=== PATIENT | male | born 1940 | race Caucasian/White ===

== ENCOUNTER 2018-04-14 18:59 | Inpatient (IN) | payer MEDICARE, MEDICAID, SELFPAY ==
[2018-04-14 19:02] VITALS: BP 139/64; PULSE 72; PULSE 73; RESP 18; RESP 23; TEMP 37.2; O2SAT 88; BMI 33.0
[2018-04-14 19:12] VITALS: PULSE 74; RESP 20
[2018-04-14 19:15] VITALS: O2SAT 92
[2018-04-14 19:21] VITALS: BP 151/56; PULSE 70; RESP 25; O2SAT 90
[2018-04-14 19:24] LABS: Absolute Lymphocyte Count 0.99 X10^3/ul (0.83-4.51); Absolute Neutrophil Count 4.2 X10^3/uL (2.0-7.7); Basophil# 0.03 X10^3/uL; Basophil% 0.5 % (0-1); Eosinophil# 0.19 X10^3/uL; Eosinophils% 3.2 % (0-5); Hematocrit 41.9 % (40-54); Hemoglobin 12.9 g/dl (13.0-16.5); Lymphocyte # 0.99 X10^3/ul (4.0); Lymphocyte % 16.8 % (19-41); Mean Corp Hgb Conc 30.8 g/gl (32-36); Mean Corpuscular Hgb 29.5 pg (27.0-32.0); Mean Corpuscular Volume 95.9 fL (80-94); Mean Platelet Vol. 9.7 fl (6.2-12.0); Monocyte# 0.53 X10^3/uL; Neutrophil # 4.15 X10^3/uL (2.7-7.7); Neutrophil % 70.3 % (47-70); POSITIVE COUNT NO; POSITIVE DIFFERENTIAL NO; POSITIVE MORPHOLOGY NO; Platelet Count 178 K/mm3 (150-450); RBC Distribution Width CV 14.9 % (11.6-14.6); RBC Distribution Width SD 52.3 fl (35.1-43.9); Red Blood Count 4.37 M/mm3 (4.6-6.2); White Blood Count 5.9 K/mm3 (4.4-11.0)
[2018-04-14 19:26] VITALS: O2SAT 90
--- NOTE | 2018-04-14 19:26 | ED.VISSUMM ---
- ER Visit Summary Date of Service: 04/14/18 Chief Complaint: Shortness of breath History of Present Illness: The patient is a 77 M who tells me he short of breath. This all started today. He currently lives at [facility]. He became more short of breath there. He denies any chest pain currently but states he had some a couple of days ago. He does not usually wear oxygen. He does have a history of COPD and chronic kidney disease. According to the [facility] nurse practitioner on-call he had increase of edema of his legs. He is a former smoker but does not smoke currently. Physical Examination: Vital signs are reviewed. Slight tachypnea. He is in the low 90s on 6 L nasal cannula. He is breathing from his mouth. HEENT exam unremarkable. Heart is regular rate and rhythm without murmurs. Lungs have rhonchorous breath sounds bilaterally, right greater than left. Abdomen soft nontender. Extremities reveal no significant edema. His neurologic exam is at baseline. Test Results: EKG is sinus rhythm with rate of 71. Nonspecific ST and T-wave changes. Chest x-ray reveals chronic changes. White blood cell count normal. Lactate normal. Troponin and BNP normal. Creatinine 1.58. CTA reveals a right lower lobe pneumonia. No PE Emergency Department Course and Treatment: Patient was given albuterol treatments. He was placed on a Ventimask because he is a mouth breather. His x-ray did not show anything acute and his labs were essentially nonspecific. I did a CTA which does show the pneumonia. Patient will be given vancomycin and Zosyn. He will be admitted to the ICU for close monitoring overnight. Treatment Plan: [] Disposition: Admit Impression: Acute respiratory failure, HCAP, hypoxia This note was generated with [employer] dictation software. It may contain incorrect words, spelling, and punctuation that were not noted in review of the chart prior to signing ED Disposition - Plan for ED Patient: Chief Complaint: Shortness of Breath Referrals: Declan Reed MD [STAFF PHYSICIAN] -
[2018-04-14 19:31] LABS: Prothrombin Time (Protime)PT. 13.6 SECONDS (11.7-14.9)
[2018-04-14 19:32] LABS: Partial Thromboplast Time 27.7 Seconds (24.1-36.2)
[2018-04-14 19:39] LABS: BUN 31 mg/dL (7-18); Creatinine, Serum 1.58 mg/dL (0.70-1.30); Estimated Creatinine Clearance 37.28 ml/min; Glucose 162 mg/dL (74-106)
[2018-04-14 19:40] LABS: ALB/GLOB Ratio 1.1 RATIO (0.9-2.4); AST(SGOT) 17 U/L (15-37); Alanine Aminotransfer ALT/SGPT 32 U/L (16-61); Albumin, Serum 3.5 g/dL (3.2-5.0); Alkaline Phosphatase 57 U/L (45-117); Anion Gap 7 (5-15); BUN/Creat Ratio 19.6 RATIO (10-20); Calcium,Total 8.4 mg/dL (8.5-10.1); Chloride 109 mmol/L (98-107); EST Glomerular Filtration Rate 45 mL/min (>60); Est Glom Filt Rate - Afr Amer 55 mL/min (>60); Globulin 3.2 g/dL (2.2-4.2); Potassium 4.5 mmol/L (3.5-5.1); Protein, Total 6.7 g/dL (6.4-8.2); Sodium Level 143 mmol/L (136-145)
[2018-04-14 20:07] LABS: BNP,B-Type NATRIURETIC PEPTIDE 37.5 pg/mL (0-100)
[2018-04-14 20:23] VITALS: BP 156/77; PULSE 73; RESP 18; O2SAT 91
[2018-04-14 21:12] LABS: Lactic Acid 0.9 mmol/L (0.4-2.0)
[2018-04-14] MEDS: Albuterol 2.5 MG/3 ML VIAL.NEB. INHALATION ×2 (21:12)
--- NOTE | 2018-04-14 22:50 | PCM.HP.STD ---
Problem List (1) Sepsis Status: Acute Qualifiers: Sepsis type: sepsis due to unspecified organism Qualified Code(s): A41.9 - Sepsis, unspecified organism (2) HCAP (healthcare-associated pneumonia) Status: Acute (3) Acute respiratory failure with hypoxia Status: Acute (4) Chronic obstructive pulmonary disease Status: Chronic Qualifiers: COPD type: unspecified COPD Qualified Code(s): J44.9 - Chronic obstructive pulmonary disease, unspecified (5) HTN (hypertension) Status: Chronic Qualifiers: Hypertension type: essential hypertension Qualified Code(s): I10 - Essential (primary) hypertension (6) HLD (hyperlipidemia) Status: Chronic Qualifiers: Hyperlipidemia type: pure hypercholesterolemia Qualified Code(s): E78.00 - Pure hypercholesterolemia, unspecified; E78.0 - Pure hypercholesterolemia (7) History of MS (myocardial infarction) Status: Chronic (8) Anxiety and depression Status: Chronic (9) Schizophrenia Status: Chronic Qualifiers: Schizophrenia type: unspecified Qualified Code(s): F20.9 - Schizophrenia, unspecified (10) Colon cancer Status: Chronic Qualifiers: Colon location: unspecified part of colon Qualified Code(s): C18.9 - Malignant neoplasm of colon, unspecified (11) Dysphagia Status: Chronic Qualifiers: Dysphagia type: unspecified Qualified Code(s): R13.10 - Dysphagia, unspecified History of Present Illness Date of Admission: 04/14/18 Chief Complaint: Dyspnea, cough, confusion, weakness The patient is a 77 y/o M w/ PMHx: Chronic COPD, HTN, HLD, History of MS, Anxiety and Depression/Schizophrenia, Hx Colon CA s/p resection, Chronic Dysphagia who presents from SNF to the [facility] ED on 04/14/18 with history of progressively worsening dyspnea w/ oxygenation saturation on mid-80s on RA, not normally on oxygen supplementation, mildly productive cough, confusion and weakness x 3 days. In the ED work-up included T 99, heart rate 72, BP 139/64, respiratory rate 25, 88% on 4 L nasal cannula--> 88% on 6 L nasal cannula--> 80% on a Ventimask 35%, CBC with WBC 5.9, hemoglobin 12.9, platelet 178 without market shift, unremarkable coags, BMP with chloride 109, BUN/Cr 31/1.58 without prior comparison, glucose 162, lactic acid 0.9, troponin less than 0.015, BNP 37.5, chest x-ray with no acute findings, CTPA with right lower lobe pneumonia, 20 mm left upper lobe nodule possibly related to pneumonia, no evidence of pulmonary embolism or arterial dissection. In the ED patient administered vancomycin, Zosyn, aerosol. Past Medical History Past Medical History (Chronic Problems): Chronic Problems Chronic obstructive pulmonary disease (Chronic) HTN (hypertension) (Chronic) HLD (hyperlipidemia) (Chronic) History of MS (myocardial infarction) (Chronic) Anxiety and depression (Chronic) Schizophrenia (Chronic) Colon cancer (Chronic) Dysphagia (Chronic) Allergies No Known Allergies Allergy (Verified 04/14/18 19:01) Home Medications: Ambulatory Orders Medication Instructions Recorded Albuterol Aerosols [Ventolin 2.5 mg INHALATION Q4H PRN PRN 04/14/18 Aerosols] Atorvastatin Calcium [Lipitor] 10 mg PO QHS 04/14/18 Bisacodyl [Laxative] 15 mg PO DAILY 04/14/18 Buspirone HCl 7.5 mg PO BID 04/14/18 Fenofibrate,Micronized 67 mg PO DAILY 04/14/18 [Fenofibrate] Guaifenesin [Robitussin] 10 ml PO Q4H PRN 04/14/18 [place] Carbonate 300 mg PO BID 04/14/18 Loratadine 10 mg PO DAILY 04/14/18 Lorazepam [Ativan] 0.5 mg PO BID PRN PRN 04/14/18 Mag Hydrox/Al Hydrox/Simeth 30 ml PO Q4H PRN PRN 04/14/18 [Mylanta II] Magnesium Hydroxide [Milk Of 30 ml PO FR PRN 04/14/18 Magnesia] Melatonin/Pyridoxine HCl (B6) 1 each PO QHS 04/14/18 [Melatonin 3 mg Tablet] Metoprolol Tartrate 25 mg PO BID 04/14/18 Montelukast [Singulair] 10 mg PO DAILY 04/14/18 Olanzapine [Zyprexa] 20 mg PO DAILY 04/14/18 Psyllium [Metamucil] 1 packet PO DAILY 04/14/18 Pyridoxine HCl [Vitamin B-6] 100 mg PO DAILY 04/14/18 Risperidone 1 mg PO BID 04/14/18 Sennosides/Docusate Sodium 3 each PO DAILY 04/14/18 [Senna-Docusate Sodium Tablet] Sodium Polystyrene Sulfon/Sorb 15 gm PO DAILY 04/14/18 [Sps 15 gm/60 ml Suspension] Surgical History: - - Colon resection with ostomy with reversal, tonsillectomy. Psychiatric History: Anxiety, Depression, Schizophrenia Lives: Longterm Smoking Status: Former smoker - Patient quit cigarette tobacco use approximately 8 months prior. 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 Drugs: None - *Family History Maternal History Items: - - Patient denies any marked maternal or paternal family history including diabetes, heart disease, cancer. Paternal History Items: - - Patient denies any marked maternal or paternal family history including diabetes, heart disease, cancer. Review of Systems Constitutional: Reports: Malaise, Weakness, Fatigue. Denies: Chills, Fever, Weight Change HEENT: Reports: Dysphasia. Denies: Head Aches, Sinus Congestion, Sinus Drainage Cardiovascular: Denies: Chest Pain, Palpitations Respiratory: Reports: Cough, Shortness of Breath, Shortness of breath at rest, Shortness of breath upon exertion, Sputum production Gastrointestinal: Denies: Abdominal Pain, Nausea, Vomiting Genitourinary: Denies: Dysuria Musculoskeletal: Reports: Back Pain. Denies: Joint Pain, Joint Tenderness Skin: Denies: Rash, Wounds Neurological: Reports: Confusion. Denies: Focal weakness, Numbness, Tingling Psychiatric: Reports: Anxiety, Depression. Denies: Homicidal Ideations, Suicidal Ideations Hematologic/ Lymphatic: Reports: Anemia. Denies: Easy Bruising, Easy Bleeding VTE Information - Inpt Only VTE Present on Admission: No VTE Mechan Device Prophylaxis: SCD's VTE Pharm Prophylaxis ordered?: Yes Patient Problems: Active and Suspected Problems Acute respiratory failure with hypoxia (Acute) HCAP (healthcare-associated pneumonia) (Acute) Sepsis (Acute) Subjective: Seated upright in the ED bed, increased work of breathing, accessory muscle usage ongoing, notes feeling better than initial presentation. Objective: Physical Examination: General: awake, alert, oriented to self, place, some recent events, remains cooperative, seated upright in the ED bed, still increased RR, increased work of breathing, some accessory muscle usage. Skin: normal color, turgor, no icterus, cyanosis. HEENT: AT/NC, EOMI, PERRLA, dry MM, no carotid bruits or JVD noted. Lungs: Severely diffusely diminished BS, increased work of breathing, accessory muscle usage, increased RR, occasional end expiratory wheeze but primarily severe diminished. Heart: Regular rate and rhythm; no gallop, rub audible. Abdomen: soft, obese, NTTP, ND, normal BS, no HSM. Extremities: no cyanosis, clubbing, BL LE ankle to distal selby edema. Neurological: patient awake, alert, oriented as noted; cognitive function improving, not baseline intact; pupils equally reactive to light and accomodation; cranial nerves II-XII grossly normal, moving all 4 extremities, strength severely globally decreased. Psychiatric: affect appears moderately flat, fatigued, no acute evidence of depressive or anxiety feelings. - Physical Exam Vital Signs Temp Pulse Resp BP Pulse Ox 99.0 F 73 18 156/77 H 91 04/14/18 19:02 04/14/18 20:23 04/14/18 20:23 04/14/18 20:23 04/14/18 20:23 Oxygen Flow Rate (L/min) 8 Oxygen Delivery Method Venturi Mask Weight: 217 lb 9.54 oz Body Mass Index (BMI) 33.0 Laboratory Tests Past 24 Hrs 04/14/18 04/14/18 04/14/18 19:10 19:10 19:10 WBC 5.9 RBC 4.37 L Hgb 12.9 L Hct 41.9 MCV 95.9 H MCH 29.5 MCHC 30.8 L RDW 14.9 H RDW Differential 52.3 H Plt Count 178 MPV 9.7 Immature Gran % (Auto) 0.200 Neut % (Auto) 70.3 H Lymph % (Auto) 16.8 L [place] % (Auto) 9.0 Eos % (Auto) 3.2 Baso % (Auto) 0.5 Absolute Neuts (auto) 4.2 Absolute Lymphs (auto) 0.99 Total Counted Not Reportable PT 13.6 INR 1.0 APTT 27.7 Sodium 143 Potassium 4.5 Chloride 109 H Carbon Dioxide 27.0 Anion Gap 7 BUN 31 H Creatinine 1.58 H Estim Creat Clear Calc 37.28 Est GFR (MDRD) Af Amer 55 L Est GFR (MDRD) Non-Af 45 L BUN/Creatinine Ratio 19.6 Glucose 162 H Lactic Acid Calcium 8.4 L Total Bilirubin 0.30 AST 17 ALT 32 Alkaline Phosphatase 57 Troponin I < 0.015 B-Natriuretic Peptide Total Protein 6.7 Albumin 3.5 Globulin 3.2 Albumin/Globulin Ratio 1.1 04/14/18 04/14/18 04/14/18 19:10 19:30 20:35 WBC RBC Hgb Hct MCV MCH MCHC RDW RDW Differential Plt Count MPV Immature Gran % (Auto) Neut % (Auto) Lymph % (Auto) Camp % (Auto) Eos % (Auto) Baso % (Auto) Absolute Neuts (auto) Absolute Lymphs (auto) Total Counted PT INR APTT Sodium Potassium Chloride Carbon Dioxide Anion Gap BUN Creatinine Estim Creat Clear Calc Est GFR (MDRD) Af Amer Est GFR (MDRD) Non-Af BUN/Creatinine Ratio Glucose Lactic Acid Cancelled 0.9 Calcium Total Bilirubin AST ALT Alkaline Phosphatase Troponin I B-Natriuretic Peptide 37.5 Total Protein Albumin Globulin Albumin/Globulin Ratio Assessment/Plan All Active Problems Acute respiratory failure with hypoxia (Acute) HCAP (healthcare-associated pneumonia) (Acute) Sepsis (Acute) The patient is a 77 y/o M w/ PMHx: Chronic COPD, HTN, HLD, History of MS, Anxiety and Depression/Schizophrenia, Hx Colon CA, Chronic Dysphagia who presents from SNF to the [facility] ED on 04/14/18 with history of progressively worsening dyspnea w/ oxygenation saturation on mid-80s on RA, not normally on oxygen supplementation, mildly productive cough, confusion and weakness x 3 days. (1) Acute Sepsis secondary to Acute Hypoxic Respiratory Failure secondary to HCAP Pneumonia and Acute on Chronic COPD Exacerbation: Increased work of breathing, accessory muscle usage, increased RR, tachypneic w/ hypoxia, confusion. Will admit to ICU given tenuous pulmonary status and full code, maintain on oxygen with wean as tolerated to room air, continue ATC duonebs, PRN albuterol, maintain on IV Solumedrol, maintain on IV Zosyn and Vancomycin w/ MRSA screen pending, HOB, IS parameters w/ pending sputum cultures and urine antigens as well as respiratory viral panel. Bld cx x 2 obtained in the ED. ABG pending. (2) ? MIKAELA versus CKD, Unclear Stage: Admission BUN/Cr /.58, unclear baseline, given presentation suspect acute on chronic, will continue to hydrate, repeat BMP in AM, FeNa pending. (3) History of MS, CAD: Maintain on asa, BB, statin. (4) Hypertension: Continue home regimen including metoprolol, PRN hydralazine. (5) Hyperlipidemia: Continue home statin regimen. (6) Anxiety and Depression/Schizophrenia: Continue home psychiatric regimen w/ lithium, buspar, zyprexa and risperidone. (7) Chronic Constipation: Continue aggressive bowel regimen, hold if loose stools. (8) Hx Colon CA: s/p remote colon resection, s/p ostomy w/ reversal, remission status. (9) DVT Prophylaxis: SCDs, heparin. (10) CODE status: Discussed CODE status at length including difference between FULL code, DNR-CCA and DNR-CC status. Following discussions about the differences in these status, confirmed Full Code status, confirmed w/ SNF also. Advanced Care Planning Face to Face Time: 18 minutes. Code Visit Inpatient E&M: 36495 Init Hosp L3 Procedures: 60515 Advncd Care Plan 30 Min
--- NOTE | 2018-04-14 23:55 | NURSING ---
Called ER for report. No report received, but they will call back.
[2018-04-15] VITALS (38 sets, daily range): BP systolic 113–162; BP diastolic 50–88; PULSE 55–88; RESP 12–23; TEMP 36.1–36.9; O2SAT 2–100; BMI 31.4; BMI 33.1
[2018-04-15] MEDS: Vancomycin IV 1,000 MG/200 ML BAG 200 MG IV (00:16)
[2018-04-15 01:19] LABS: Magnesium 2.3 mg/dL (1.6-2.6)
[2018-04-15 01:20] LABS: Allen Test POS; Base Excess -1 mmol/L (-2 to +2); Bicarbonate 26.1 mmol/L (22-26); Blood Gas Specimen Type ART; FI02 35; PO2 66 mmHG (75-100); SITE R Radial; SO2 89 % (95-99); Time Given 108; Total Carbon Dioxide 28 mmol/L; pCO2 59.5 mmHg (35-45); pH 7.25 (7.35-7.45)
[2018-04-15 02:45] LABS: Allen Test POS; Base Excess -2 mmol/L (-2 to +2); Bicarbonate 25.8 mmol/L (22-26); Blood Gas Specimen Type ART; EPAP 10; FI02 40; IPAP 18; PO2 75 mmHG (75-100); RR 12; SITE L Radial; SO2 92 % (95-99); Time Given 235; Total Carbon Dioxide 28 mmol/L; pH 7.24 (7.35-7.45)
[2018-04-15] MEDS: 0.9% Normal Saline 1,000 ML 125 ML IV ×3 (03:12→21:33)
--- NOTE | 2018-04-15 03:30 | PCM.RX.CS ---
Consult Pharmacy has been consulted to manage selected antiobiotic: Vancomycin Type of Consult: New start Suspected Infection: Pneumonia Labs: Sodium 143 mmol/L (136-145) 04/14/18 19:10 Potassium 4.5 mmol/L (3.5-5.1) 04/14/18 19:10 Chloride 109 mmol/L (98-107) H 04/14/18 19:10 Carbon Dioxide 27.0 mmol/L (21.0-32.0) 04/14/18 19:10 Anion Gap 7 (5-15) 04/14/18 19:10 BUN 31 mg/dL (7-18) H 04/14/18 19:10 Creatinine 1.58 mg/dL (0.70-1.30) H 04/14/18 19:10 Est GFR (MDRD) Af Amer 55 mL/min (>60) L 04/14/18 19:10 Est GFR (MDRD) Non-Af 45 mL/min (>60) L 04/14/18 19:10 BUN/Creatinine Ratio 19.6 RATIO (10-20) 04/14/18 19:10 Glucose 162 mg/dL (74-106) H 04/14/18 19:10 Microbiology: Microbiology 04/15/18 01:15 Urine, Random Legionella Antigen - Final 04/15/18 01:15 Urine, Random Streptococcus pneumoniae Antigen (M - Final Goal Trough: 15-20 mcg/mL Pharmacy Plan for Drug Dosing: Pharmacy Service will continue to monitor and adjust dosing as required. Medications Vancomycin HCl 1,500 mg/ (Sodium Chloride) 530 mls @ 250 mls/hr IV Q24H TATYANA Piperacillin Sod/Tazobactam Sod (Zosyn) 3.375 gm in 50 mls @ 12.5 mls/hr IV Q8 TATYANA Follow-Up Labs: Trough Vancomycin Labs to be done on [date and time ordered]: 04/18 @ 0030
--- NOTE | 2018-04-15 03:45 | NURSING ---
spoke with Ольга, MANAGER BUSINESS, to get report on this patient. okay to transfer down to ROOM 104
--- NOTE | 2018-04-15 03:47 | NURSING ---
Pt transported to PCU room 104 via bed on Venti Mask 35% O2 with IV infusing.
[2018-04-15 04:57] LABS: M R Staph aureus DNA By PCR Negative (Negative); Probe Check PASS; Specimen Processing Control PASS
[2018-04-15 05:11] LABS: Allen Test POS; Base Excess -3 mmol/L (-2 to +2); Bicarbonate 24.8 mmol/L (22-26); Blood Gas Specimen Type ART; EPAP 10; FI02 40; PO2 80 mmHG (75-100); RR 14; SITE L Radial; SO2 92 % (95-99); Time Given 451; Total Carbon Dioxide 27 mmol/L; pCO2 60.6 mmHg (35-45); pH 7.22 (7.35-7.45)
[2018-04-15] MEDS: Piperacil/Tazobactam 3.375 GM/50 ML ML IV ×3 (05:56→21:36)
[2018-04-15] MEDS: Ipratropium/Albuterol Sulfate 3 ML AMPUL.NEB INHALATION ×5 (07:09→22:50)
--- NOTE | 2018-04-15 08:24 | PCM.CONS.GEN ---
Reason for Consult Date of Consultation: 04/15/18 Reason for Consultation: Respiratory failure History of Present Illness: The patient is a 77-year-old male, with a history as outlined below, who presented to the emergency department on April 14 with complaints of shortness of breath. The patient does reside at [facility]. Per report, the patient is not normally on supplemental oxygen at his baseline. The patient has a smoking history of 2 packs per day for prolonged period, having quit completely 6-8 months ago. He does not recall ever having been diagnosed with COPD or asthma. He does not currently utilize any inhalers at his baseline. He does report the presence of shortness of breath and a mild, intermittently productive cough. He denies any chest tightness or wheezing. He does report that he is schizophrenic and hears voices frequently. On presentation to the emergency department, the patient was noted to be afebrile hemodynamically stable. He was hypoxic requiring 4 L/min of supplemental oxygen initially. Laboratory evaluation revealed no evidence of a leukocytosis. Chemistry profile revealed elevated creatinine of 1.58. Serum lactate was within normal limits. Liver function profile was normal. Troponin was negative and BNP was within normal limits. A CTA chest was obtained in the emergency department and revealed no evidence for pulmonary embolism, but did reveal a right lower lobe pneumonia and a 2 cm left upper lobe nodule. The patient was started on broad-spectrum antimicrobials and subsequently transferred to the progressive care unit for ongoing management. Past Medical History Past Medical History (Chronic Problems): Chronic Problems (Last Updated 04/15/18 @ 01:40 by Estella Cavazos) Chronic obstructive pulmonary disease (Chronic) HTN (hypertension) (Chronic) HLD (hyperlipidemia) (Chronic) History of IL (myocardial infarction) (Chronic) Anxiety and depression (Chronic) Schizophrenia (Chronic) Colon cancer (Chronic) Dysphagia (Chronic) Medical History: Medical History (Last Updated 04/15/18 @ 01:40 by Estella Cavazos) Anxiety F41.9 COPD (chronic obstructive pulmonary disease) J44.9 Constipation K59.00 Dysphagia R13.10 GERD (gastroesophageal reflux disease) K21.9 Hyperlipemia E78.5 Malignant neoplasm C80.1 Paranoid schizophrenia F20.0 Hypertension I10 Allergies No Known Allergies Allergy (Verified 04/14/18 19:01) Home Medications: Ambulatory Orders Medication Instructions Recorded Albuterol Aerosols [Ventolin 2.5 mg INHALATION Q4H PRN PRN 04/14/18 Aerosols] Atorvastatin Calcium [Lipitor] 10 mg PO QHS 04/14/18 Bisacodyl [Laxative] 15 mg PO QHS 04/14/18 Buspirone HCl 7.5 mg PO BID 04/14/18 Fenofibrate,Micronized 67 mg PO QHS 04/14/18 [Fenofibrate] Guaifenesin [Robitussin] 10 ml PO Q4H PRN 04/14/18 [place] Carbonate 300 mg PO BID 04/14/18 Loratadine 10 mg PO DAILY 04/14/18 Lorazepam [Ativan] 0.5 mg PO BID PRN PRN 04/14/18 Mag Hydrox/Al Hydrox/Simeth 30 ml PO Q4H PRN PRN 04/14/18 [Mylanta II] Magnesium Hydroxide [Milk Of 30 ml PO FR PRN 04/14/18 Magnesia] Melatonin/Pyridoxine HCl (B6) 1 each PO QHS 04/14/18 [Melatonin 3 mg Tablet] Metoprolol Tartrate 25 mg PO BID 04/14/18 Montelukast [Singulair] 10 mg PO DAILY 04/14/18 Olanzapine [Zyprexa] 20 mg PO QHS 04/14/18 Psyllium [Metamucil] 1 packet PO DAILY 04/14/18 Pyridoxine HCl [Vitamin B-6] 100 mg PO DAILY 04/14/18 Risperidone 1 mg PO BID 04/14/18 Sennosides/Docusate Sodium 3 each PO QHS 04/14/18 [Senna-Docusate Sodium Tablet] Sodium Polystyrene Sulfon/Sorb 15 gm PO QHS 04/14/18 [Sps 15 gm/60 ml Suspension] Surgical History: - - Colon resection with ostomy with reversal, tonsillectomy. Psychiatric History: Anxiety, Depression, Schizophrenia Lives: [facility] Smoking Status: Former smoker - Patient quit cigarette tobacco use approximately 8 months prior. 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 Drugs: None - *Family History Maternal History Items: - - Patient denies any marked maternal or paternal family history including diabetes, heart disease, cancer. Paternal History Items: - - Patient denies any marked maternal or paternal family history including diabetes, heart disease, cancer. Review of Systems Constitutional: Reports: Weakness, Fatigue Eyes: Denies: Blurred vision, Double vision HEENT: Denies: Head Aches, Sinus Congestion, Sinus Drainage Cardiovascular: Denies: Chest Pain, Palpitations Respiratory: Reports: Cough, Shortness of Breath. Denies: Wheezing Gastrointestinal: Denies: Abdominal Pain, Nausea, Vomiting Genitourinary: Denies: Dysuria Musculoskeletal: Denies: Joint Pain, Joint Tenderness Skin: Denies: Rash, Wounds Neurological: Reports: Difficulty swallowing Psychiatric: Reports: - - Baseline schizophrenia Hematologic/ Lymphatic: Denies: Easy Bruising, Easy Bleeding Patient Problems: Active and Suspected Problems (Last Updated 04/15/18 @ 01:40 by Estella Cavazos) Acute respiratory failure with hypoxia (Acute) HCAP (healthcare-associated pneumonia) (Acute) Sepsis (Acute) Objective: The patient's most recent lab work, culture data and imaging studies have all been personally reviewed. Strep and urine Legionella antigens are pending. Respiratory viral panel is pending. Blood and urine cultures are pending. - Physical Exam General: Alert, Cooperative, No apparent distress HEENT: Atraumatic, PERRLA, Normocephalic Oral: Dry Mucosa, - - Edentulous Neck: Supple, No Nodes, Trachea Midline Lungs: No rhonchi, No wheeze, No rales, Diminished Cardiovascular: Regular rate, Regular Rhythm, Normal S1, Normal S2, No murmurs, No rub noted, No Gallop Abdomen: Bowel Sounds Present, Soft, Non Tender, Obese Extremities: No clubbing, No cyanosis, Edema Skin: No breakdown Musculoskeletal: No Tenderness to Palpation of Joints or Extremities Lymphatic: No Cervical, Supraclavicular, or Inguinal Adenopathy Neurological: Neuro grossly intact Psych/Mental Status: Normal Affect, Appropriate Vital Signs Temp Pulse Resp BP Pulse Ox 98.1 F 57 L 15 136/76 H 96 04/15/18 04:00 04/15/18 07:00 04/15/18 07:00 04/15/18 07:00 04/15/18 07:00 Oxygen Delivery Method Bi-pap Weight: 211 lb 3.245 oz Body Mass Index (BMI) 31.4 Intake and Output for Last 24 Hours 09/01/18 09/02/18 09/03/18 23:59 23:59 23:59 Intake Total 781 / 781 Balance 781 / 781 Microbiology Past 72 Hours 04/15/18 01:15 Legionella Antigen - Final Urine, Random 04/15/18 01:15 Streptococcus pneumoniae Antigen (M - Final Urine, Random Laboratory Tests Past 24 Hrs 04/15/18 04/15/18 04/15/18 00:45 01:14 01:15 Specimen Type ART Sample Site R Radial pH 7.25 L Bicarbonate Actual 26.1 H POC Total CO2 28 Base Excess -1 O2 Saturation 89 L O2 % 35 ABG pCO2 59.5 H ABG pO2 66 L Mehrdad Test POS Respiration Rate O2 Delivery Device Vent Mask EPAP IPAP Blood Gas Notified Whom [facility] Blood Gas Notified Time 108 Ur Random Sodium Cancelled Urine Creatinine MRSA (PCR) Negative 04/15/18 04/15/18 04/15/18 02:30 02:43 05:08 Specimen Type ART ART Sample Site L Radial L Radial pH 7.24 L 7.22 L Bicarbonate Actual 25.8 24.8 POC Total CO2 28 27 Base Excess -2 -3 L O2 Saturation 92 L 92 L O2 % 40 40 ABG pCO2 60.0 H 60.6 H ABG pO2 75 80 [place] Test POS POS Respiration Rate 12 14 O2 Delivery Device Bi / C PAP Bi / C PAP EPAP 10 10 IPAP 18 Blood Gas Notified Whom [facility] Blood Gas Notified Time 235 451 Ur Random Sodium Urine Creatinine 33.50 MRSA (PCR) Clinical Impression(s) from Imaging Studies Chest X-Ray 04/14/18 19:12 IMPRESSION: There are no acute findings. Electronically Signed: Brando Hernandez MD at 20:24 EDT , Service support , Chest CTA 04/14/18 21:37 IMPRESSION: Fatty liver. Hepatic cysts. Right lower lobe pneumonia. 20 mm left upper lobe nodule. This may be related to a pneumonia. No demonstrated pulmonary embolism or arterial dissection. Electronically Signed: Brando Hernandez MD at 22:40 EDT , Service support , Assessment/Plan All Active Problems (Last Updated 04/15/18 @ 01:40 by Estella Cavazos) Acute respiratory failure with hypoxia (Acute) HCAP (healthcare-associated pneumonia) (Acute) Sepsis (Acute) RECOMMENDATIONS: 1. Continue antibiotics, bronchodilators and steroids as ordered. 2. BiPAP utilization, if needed. At the current time, the patient is maintaining appropriate oxygen saturations on 3 L/min. 3. Continue baseline psychiatric medications. 4. Wean supplemental oxygen to maintain saturations at or above 90%. 5. Encourage incentive spirometer use and mobilize patient as tolerated. IMPRESSIONS: 1. Acute hypoxemic and hypercarbic respiratory failure likely secondary to HCAP Suspect that the patient may have a component of underlying COPD, given his prolonged smoking history. However, he has never been formally evaluated with pulmonary function testing. In addition, imaging did reveal evidence concerning for a right lower lobe pneumonia. Agree with continuing antibiotics, pending infectious workup. Continue scheduled steroids and bronchodilators. Wean supplemental oxygen to maintain saturations above 90%. Encourage incentive spirometer use and mobilize patient as tolerated. If the patient does produce sputum, please send for culture. 2. Acute versus chronic kidney disease Unknown baseline renal function. The patient's creatinine was elevated upon arrival to the hospital. This will need to be monitored longitudinally. However, at the current time, urine output is appropriate and there is no indication for renal replacement therapy. 3. Left upper lobe lung nodule Unknown chronicity, as there is no previous chest imaging studies available for comparison. However, given the patient's extensive smoking history, this will need to be followed up upon with repeat chest imaging and potential biopsy at some point in the future. 4. History of coronary artery disease/hypertension/hyperlipidemia/depression/schizophrenia/history of colon cancer status post resection Complicates care, management, recovery and prognosis. Continue home medications as indicated. Recommend physical therapy evaluation. This note was generated with [employer] dictation software. It may contain incorrect words, spelling, and punctuation that were not noted in checking the note before signing. Code Visit Inpatient E&M: 82343 Init Hosp L3
--- NOTE | 2018-04-15 08:33 | CPS ---
PEP therapy not done, patient on BiPAP.
[2018-04-15] MEDS: Menthol/Lanolin/Calamine/Znox 113 GM Tube 1 APPLIC TOPICAL ×3 (09:04→21:34)
[2018-04-15] MEDS: busPIRone 15 MG TABLET 7.5 MG PO ×2 (09:04→21:34)
[2018-04-15] MEDS: Bisacodyl 5 MG Tablet 15 MG PO (09:05)
[2018-04-15] MEDS: Loratadine 10 MG Tablet PO (09:05)
[2018-04-15] MEDS: Lithium Carbonate 300mg Capsule 300 MG PO ×2 (09:06→21:35)
[2018-04-15] MEDS: Heparin Injection (Vial) 5,000 UNIT/ML VIAL 5000 UNIT SC ×2 (09:06→21:35)
[2018-04-15] MEDS: Psyllium 1 PACKET PO (09:07)
[2018-04-15] MEDS: RisperiDONE 1 MG Tablet PO ×2 (09:07→21:36)
[2018-04-15] MEDS: Senna/Docusate Sodium 1 Tablet 3 TABLET PO (09:07)
[2018-04-15] MEDS: Metoprolol Tartrate 25 MG Tablet PO ×2 (09:07→21:35)
[2018-04-15] MEDS: guaiFENesin 1,200 MG Tablet 1200 MG PO ×2 (09:07→21:36)
[2018-04-15] MEDS: Pyridoxine HCl 100 MG Tablet PO (09:08)
[2018-04-15] MEDS: OLANZapine 10 MG Tablet 20 MG PO (09:08)
[2018-04-15] MEDS: Fenofibrate 48 MG Tablet PO (09:08)
[2018-04-15] MEDS: Montelukast 10 MG Tablet PO (09:08)
--- NOTE | 2018-04-15 12:34 | PCM.PN.HOSP ---
Patient Problems: Active and Suspected Problems (Last Updated 04/15/18 @ 01:40 by Estella Cavazos) Acute respiratory failure with hypoxia (Acute) HCAP (healthcare-associated pneumonia) (Acute) Subjective: breathing better. Vitals/I&O's: Vital Signs Temp Pulse Resp BP Pulse Ox 36.1 C L 64 16 133/56 H 2 04/15/18 08:00 04/15/18 11:00 04/15/18 10:00 04/15/18 10:00 04/15/18 10:00 Oxygen Flow Rate (L/min) 4 Oxygen Delivery Method Nasal Cannula Weight: 95.8 kg Body Mass Index (BMI) 31.4 Intake and Output for Last 24 Hours 04/13/18 04/14/18 04/15/18 23:59 23:59 23:59 Intake Total 781 / 781 Balance 781 / 781 General: Alert, No apparent distress HEENT: Atraumatic, Normocephalic Oral: Moist Mucosa, No Gingival or Mucosal Lesions/ Ulcerations Neck: No Nodes, Thyroid Normal Size and Texture Lungs: Diminished, - - bibasilar crackles. Cardiovascular: Regular rate, Regular Rhythm, Normal S1, Normal S2, No murmurs Abdomen: Bowel Sounds Present, Soft, Non Tender, Non-Distended, Obese Extremities: No edema, No Calf Tenderness Skin: No rashes, No breakdown Musculoskeletal: No Tenderness to Palpation of Joints or Extremities, No Muscle Wasting Psych/Mental Status: Normal Affect, Appropriate Microbiology Past 72 Hours 04/15/18 01:05 Mucosa - Nose Respiratory Panel (PCR) - Final 04/15/18 01:15 Urine, Random Legionella Antigen - Final 04/15/18 01:15 Urine, Random Streptococcus pneumoniae Antigen (M - Final Laboratory Results 04/15/18 00:45: MRSA (PCR) Negative 04/15/18 01:14: Specimen Type ART, Sample Site R Radial, pH 7.25 L, Bicarbonate Actual 26.1 H, POC Total CO2 28, Base Excess -1, O2 Saturation 89 L, O2 % 35, ABG pCO2 59.5 H, ABG pO2 66 L, Mehrdad Test POS, O2 Delivery Device Vent Mask, Blood Gas Notified Whom [facility] , Blood Gas Notified Time 108 04/15/18 01:15: Ur Random Sodium Cancelled 04/15/18 02:30: Urine Creatinine 33.50 04/15/18 02:43: Specimen Type ART, Sample Site L Radial, pH 7.24 L, Bicarbonate Actual 25.8, POC Total CO2 28, Base Excess -2, O2 Saturation 92 L, O2 % 40, ABG pCO2 60.0 H, ABG pO2 75, Mehrdad Test POS, Respiration Rate 12, O2 Delivery Device Bi / C PAP, EPAP 10, IPAP 18, Blood Gas Notified Whom [facility] , Blood Gas Notified Time 235 04/15/18 05:08: Specimen Type ART, Sample Site L Radial, pH 7.22 L, Bicarbonate Actual 24.8, POC Total CO2 27, Base Excess -3 L, O2 Saturation 92 L, O2 % 40, ABG pCO2 60.6 H, ABG pO2 80, Mehrdad Test POS, Respiration Rate 14, O2 Delivery Device Bi / C PAP, EPAP 10, Blood Gas Notified Whom [facility] , Blood Gas Notified Time 451 Current Medications Acetaminophen (Tylenol) 650 mg PO Q4H PRN PRN PRN Reason: FEVER Acetaminophen (Tylenol) 650 mg PO Q6H PRN PRN PRN Reason: Mild Pain (scale 0-3)/T>100.7 Al Hydroxide/Mg Hydroxide (Mylanta Ii) 30 ml PO Q6H PRN PRN PRN Reason: Gastric burning Albuterol Sulfate (Ventolin Aerosols) 2.5 mg INHALATION Q2H PRN PRN PRN Reason: SHORTNESS OF BREATH Albuterol/Ipratropium (Duoneb) 3 ml INHALATION Q4HWA.RT [facility] Last Admin: 04/15/18 07:09 Dose: 3 ml Atorvastatin Calcium (Lipitor) 10 mg PO QHS [facility] Bisacodyl (Dulcolax) 15 mg PO DAILY [facility] Last Admin: 04/15/18 09:05 Dose: 15 mg Buspirone HCl (Buspar) 7.5 mg PO BID [facility] Last Admin: 04/15/18 09:04 Dose: 7.5 mg Calamine/Phenol (Calmoseptine Ointment) 1 applic TOPICAL 4X/DAY [facility] PRN Reason: Protocol Last Admin: 04/15/18 09:04 Dose: 1 applicatio Fenofibrate (Tricor) 48 mg PO DAILY [facility] Last Admin: 04/15/18 09:08 Dose: 48 mg Guaifenesin (Mucinex) 1,200 mg PO BID [facility] Last Admin: 04/15/18 09:07 Dose: 1,200 mg Heparin Sodium (Porcine) (Heparin Na) 5,000 unit SC Q12 [facility] Last Admin: 04/15/18 09:06 Dose: 5,000 unit Sodium Chloride () 1,000 mls @ 125 mls/hr IV .Q8H [facility] Last Admin: 04/15/18 03:12 Dose: 125 mls/hr Piperacillin Sod/Tazobactam Sod (Zosyn) 3.375 gm in 50 mls @ 12.5 mls/hr IV Q8 [facility] Last Admin: 04/15/18 05:56 Dose: 12.5 mls/hr Vancomycin HCl 1,500 mg/ (Sodium Chloride) 530 mls @ 250 mls/hr IV Q24H [facility] [place] Carbonate ([place] Carbonate) 300 mg PO BID [facility] Last Admin: 04/15/18 09:06 Dose: 300 mg Loratadine (Claritin) 10 mg PO DAILY [facility] Last Admin: 04/15/18 09:05 Dose: 10 mg Lorazepam (Ativan) 0.5 mg PO BID PRN PRN PRN Reason: ANXIETY Magnesium Hydroxide (Milk Of Magnesia) 30 ml PO DAILY PRN PRN PRN Reason: Constipation Melatonin (Melatonin) 3 mg PO QHS [facility] Methylprednisolone (Solu-Medrol) 40 mg IV Q8 [facility] Last Admin: 04/15/18 04:51 Dose: Not Given Metoprolol Tartrate (Lopressor (Beta Randell)) 25 mg PO BID [facility] Last Admin: 04/15/18 09:07 Dose: 25 mg Montelukast Sodium (Singulair) 10 mg PO DAILY [facility] Last Admin: 04/15/18 09:08 Dose: 10 mg Olanzapine (Zyprexa) 20 mg PO DAILY [facility] Last Admin: 04/15/18 09:08 Dose: 20 mg Ondansetron HCl (Zofran) 4 mg IV Q8H PRN PRN PRN Reason: NAUSEA Promethazine HCl (Phenergan) 12.5 mg IV Q6H PRN PRN PRN Reason: NAUSEA/VOMITING Psyllium Hydrophilic Mucilloid (Metamucil) 1 packet PO DAILY [facility] Last Admin: 04/15/18 09:07 Dose: 1 packet Pyridoxine HCl (Vitamin B-6) 100 mg PO DAILY [facility] Last Admin: 04/15/18 09:08 Dose: 100 mg Risperidone (Risperdal) 1 mg PO BID [facility] Last Admin: 04/15/18 09:07 Dose: 1 mg Senna/Docusate Sodium (Senokot-S, Tory-Colace) 3 tablet PO DAILY [facility] Last Admin: 04/15/18 09:07 Dose: 3 tablet Sodium Polystyrene Sulfonate (Kayexalate) 15 gm PO DAILY [facility] Medical Necessity - Tobacco Use Smoking Status: Former smoker - Patient quit cigarette tobacco use approximately 8 months prior. Tobacco Use: Non-smoker Assessment/Plan All Active Problems (Last Updated 04/15/18 @ 01:40 by Estella Cavazos) Acute respiratory failure with hypoxia (Acute) HCAP (healthcare-associated pneumonia) (Acute) Sepsis (Acute) 1. acute hypoxic and hypercapnic respiratory failure 2/2 HCAP +/- COPD wean oxygen as tolerated follow up with pulm as outpt 2. Suspected gram negative pneumonia on zosyn and vanc pulm toilet strep, legionella and resp panel negative sepsis not present 3. suspected COPD exacerbation steroids and BDs 4. CKD 3 unknown baseline monitor 5. DVT proph: SQ heparin. Code Visit Inpatient E&M: 03574 Subs Hosp L2
[2018-04-15] MEDS: Sodium Polystyrene Sulfonate 15 GM/60 ML UDC PO (16:21)
[2018-04-15] MEDS: Atorvastatin Calcium 10 MG Tablet PO (21:35)
[2018-04-15] MEDS: MELATONIN 3 MG TABLET PO (21:36)
[2018-04-16] VITALS (18 sets, daily range): BP systolic 110–137; BP diastolic 47–83; PULSE 52–79; RESP 18–26; TEMP 36.6–37.1; O2SAT 4–95
[2018-04-16 01:06] LABS: Urine Sodium 49 mmol/L (Not Establ.)
[2018-04-16] MEDS: Ipratropium/Albuterol Sulfate 3 ML AMPUL.NEB INHALATION ×5 (03:50→19:30)
[2018-04-16] MEDS: Piperacil/Tazobactam 3.375 GM/50 ML ML IV ×3 (05:24→21:28)
[2018-04-16 05:58] LABS: Anion Gap 8 (5-15); BUN 33 mg/dL (7-18); BUN/Creat Ratio 21.7 RATIO (10-20); Calcium,Total 7.9 mg/dL (8.5-10.1); Chloride 109 mmol/L (98-107); Creatinine, Serum 1.52 mg/dL (0.70-1.30); EST Glomerular Filtration Rate 47 mL/min (>60); Est Glom Filt Rate - Afr Amer 57 mL/min (>60); Estimated Creatinine Clearance 40.05 ml/min; Glucose 182 mg/dL (74-106); Potassium 4.7 mmol/L (3.5-5.1); Sodium Level 143 mmol/L (136-145)
[2018-04-16 06:02] LABS: Absolute Neutrophil Count 5.7 X10^3/uL (2.0-7.7); Hemoglobin 12.9 g/dl (13.0-16.5); Lymphocyte % 6.3 % (19-41); Mean Corp Hgb Conc 30.7 g/gl (32-36); Mean Corpuscular Hgb 29.8 pg (27.0-32.0); Monocyte# 0.25 X10^3/uL; Monocyte% 3.9 % (0-10); Neutrophil # 5.68 X10^3/uL (2.7-7.7); Platelet Count 176 K/mm3 (150-450); RBC Distribution Width CV 14.8 % (11.6-14.6); RBC Distribution Width SD 50.6 fl (35.1-43.9); Red Blood Count 4.33 M/mm3 (4.6-6.2); White Blood Count 6.4 K/mm3 (4.4-11.0)
[2018-04-16 06:05] LABS: Differential Indicated SCAN CRITERIA MET; POSITIVE COUNT NO; POSITIVE DIFFERENTIAL YES; POSITIVE MORPHOLOGY NO
[2018-04-16 06:12] LABS: Differential Comment SCANNED
[2018-04-16] MEDS: 0.9% Normal Saline 1,000 ML 125 ML IV ×2 (08:10→17:02)
[2018-04-16] MEDS: busPIRone 15 MG TABLET 7.5 MG PO ×2 (08:11→21:18)
[2018-04-16] MEDS: Menthol/Lanolin/Calamine/Znox 113 GM Tube 1 APPLIC TOPICAL ×4 (08:11→21:22)
[2018-04-16] MEDS: Bisacodyl 5 MG Tablet 15 MG PO (08:12)
[2018-04-16] MEDS: Loratadine 10 MG Tablet PO (08:12)
[2018-04-16] MEDS: Metoprolol Tartrate 25 MG Tablet PO ×2 (08:13→21:19)
[2018-04-16] MEDS: Lithium Carbonate 300mg Capsule 300 MG PO ×2 (08:13→21:19)
[2018-04-16] MEDS: Heparin Injection (Vial) 5,000 UNIT/ML VIAL 5000 UNIT SC ×2 (08:13→21:21)
[2018-04-16] MEDS: Montelukast 10 MG Tablet PO (08:14)
[2018-04-16] MEDS: Psyllium 1 PACKET PO (08:14)
[2018-04-16] MEDS: Senna/Docusate Sodium 1 Tablet 3 TABLET PO (08:14)
[2018-04-16] MEDS: RisperiDONE 1 MG Tablet PO ×2 (08:14→21:20)
[2018-04-16] MEDS: Pyridoxine HCl 100 MG Tablet PO (08:15)
[2018-04-16] MEDS: OLANZapine 10 MG Tablet 20 MG PO (08:15)
[2018-04-16] MEDS: Fenofibrate 48 MG Tablet PO (08:15)
[2018-04-16] MEDS: Sodium Polystyrene Sulfonate 15 GM/60 ML UDC PO (08:17)
--- NOTE | 2018-04-16 10:06 | PCM.PROGNOTE ---
Patient Problems: Active and Suspected Problems (Last Updated 04/15/18 @ 01:40 by Estella Cavazos) Acute respiratory failure with hypoxia (Acute) HCAP (healthcare-associated pneumonia) (Acute) Subjective: Patient did okay overnight. Patient subjectively improved compared to previous. Patient denies any current pain at this time. Patient does have a mildly productive cough of yellow sputum. Patient has remained on supplemental oxygen to maintain appropriate saturations. - Physical Exam General: Alert, Cooperative, No apparent distress, - - Speaking in full sentences. HEENT: Atraumatic, PERRLA, EOMI, Normocephalic, - - No scleral icterus or injection noted. Oral: Moist Mucosa, No Gingival or Mucosal Lesions/ Ulcerations Neck: Supple, No JVD, No Nodes, Trachea Midline Lungs: No rhonchi, No rales, Diminished, Wheezes Cardiovascular: Regular rate, Regular Rhythm, Normal S1, Normal S2, No murmurs, No rub noted, No Gallop Abdomen: Bowel Sounds Present, Soft, Non Tender, Non-Distended, Obese Extremities: No clubbing, No cyanosis, Edema - 1+ lower extremity Skin: No rashes, No breakdown, - - Some venous stasis changes noted Musculoskeletal: No Tenderness to Palpation of Joints or Extremities Lymphatic: No Cervical, Supraclavicular, or Inguinal Adenopathy Neurological: Cranial nerves II-XII grossly intact, Neuro grossly intact, Motor Exam 5/5 strength throughout Psych/Mental Status: Flat Affect, Impulsive Vital Signs Temp Pulse Resp BP Pulse Ox 36.7 C 62 20 H 130/59 H 93 04/16/18 04:00 04/16/18 08:13 04/16/18 06:45 04/16/18 04:00 04/16/18 06:45 Oxygen Flow Rate (L/min) 4 Oxygen Delivery Method Nasal Cannula Weight: 99.1 kg Body Mass Index (BMI) 31.4 Intake and Output for Last 24 Hours 04/14/18 04/15/18 04/16/18 23:59 23:59 23:59 Intake Total 1598.8 / 1598.8 5073 / 5073 Output Total 200 / 200 750 / 750 Balance 1398.8 / 1398.8 4323 / 4323 Microbiology Past 72 Hours 04/15/18 01:05 Respiratory Panel (PCR) - Final Mucosa - Nose 04/15/18 01:15 Legionella Antigen - Final Urine, Random 04/15/18 01:15 Streptococcus pneumoniae Antigen (M - Final Urine, Random Laboratory Tests Past 24 Hrs 04/15/18 04/16/18 04/16/18 02:30 05:15 05:15 WBC 6.4 RBC 4.33 L Hgb 12.9 L Hct 42.0 MCV 97.0 H MCH 29.8 MCHC 30.7 L RDW 14.8 H RDW Differential 50.6 H Plt Count 176 MPV 10.0 Immature Gran % (Auto) 0.800 Neut % (Auto) 89.0 H Lymph % (Auto) 6.3 L [place] % (Auto) 3.9 Eos % (Auto) 0.0 Baso % (Auto) 0.0 Absolute Neuts (auto) 5.7 Absolute Lymphs (auto) 0.40 L Total Counted Not Reportable Differential Comment SCANNED Sodium 143 Potassium 4.7 Chloride 109 H Carbon Dioxide 26.0 Anion Gap 8 BUN 33 H Creatinine 1.52 H Estim Creat Clear Calc 40.05 Est GFR (MDRD) Af Amer 57 L Est GFR (MDRD) Non-Af 47 L BUN/Creatinine Ratio 21.7 H Glucose 182 H Calcium 7.9 L Ur Random Sodium 49 Medical Necessity - Tobacco Use Smoking Status: Former smoker - Patient quit cigarette tobacco use approximately 8 months prior. Tobacco Use: Non-smoker Assessment/Plan All Active Problems (Last Updated 04/15/18 @ 01:40 by Estella Cavazos) Acute respiratory failure with hypoxia (Acute) HCAP (healthcare-associated pneumonia) (Acute) Sepsis (Acute) RECOMMENDATIONS: 1. Continue Zosyn, bronchodilators and steroids as ordered. Will discontinue vancomycin 2. BiPAP utilization, if needed. At the current time, the patient is maintaining appropriate oxygen saturations on 3 L/min. 3. Continue baseline psychiatric medications. 4. Wean supplemental oxygen to maintain saturations at or above 90%. 5. Encourage incentive spirometer use and mobilize patient as tolerated. 6. Outpatient evaluation for lung nodule IMPRESSIONS: 1. Acute hypoxemic and hypercarbic respiratory failure likely secondary to HCAP Suspect that the patient may have a component of underlying COPD, given his prolonged smoking history. Patient will be treated empirically as a COPD exacerbation secondary to a right lower lobe pneumonia. Patient will continue on current steroids given high supplemental oxygen requirements. Continue to use BiPAP for rescue if necessary. 2. Acute versus chronic kidney disease Unknown baseline renal function. Creatinine relatively unchanged from admission. The patient's creatinine was elevated upon arrival to the hospital. This will need to be monitored longitudinally. However, at the current time, urine output is appropriate and there is no indication for renal replacement therapy. 3. Left upper lobe lung nodule Unknown chronicity, as there is no previous chest imaging studies available for comparison. However, given the patient's extensive smoking history, this will need to be followed up upon as an outpatient with repeat chest imaging and potential biopsy at some point in the future. 4. History of coronary artery disease/hypertension/hyperlipidemia/depression/schizophrenia/history of colon cancer status post resection Complicates care, management, recovery and prognosis. Continue home medications as indicated. Recommend physical therapy evaluation. This note was generated with [employer] dictation software. It may contain incorrect words, spelling, and punctuation that were not noted in checking the note before signing. Code Visit Inpatient E&M: 94262 Subs Hosp L3
--- NOTE | 2018-04-16 10:49 | PCM.PN.HOSP ---
Patient Problems: Active and Suspected Problems (Last Updated 04/15/18 @ 01:40 by Estella Cavazos) Acute respiratory failure with hypoxia (Acute) HCAP (healthcare-associated pneumonia) (Acute) Subjective: Patient denying any shortness of breath. Stating that he wishes to go home from the hospital. Vitals/I&O's: Vital Signs Temp Pulse Resp BP Pulse Ox 36.7 C 62 20 H 130/59 H 93 04/16/18 04:00 04/16/18 08:13 04/16/18 06:45 04/16/18 04:00 04/16/18 06:45 Oxygen Flow Rate (L/min) 4 Oxygen Delivery Method Nasal Cannula Weight: 99.1 kg Body Mass Index (BMI) 31.4 Intake and Output for Last 24 Hours 04/14/18 04/15/18 04/16/18 23:59 23:59 23:59 Intake Total 1598.8 / 1598.8 5073 / 5073 Output Total 200 / 200 750 / 750 Balance 1398.8 / 1398.8 4323 / 4323 General: Alert, No apparent distress HEENT: Atraumatic, Normocephalic Oral: Moist Mucosa, No Gingival or Mucosal Lesions/ Ulcerations Neck: No Nodes, Thyroid Normal Size and Texture Lungs: Diminished, - - Bibasilar crackles Cardiovascular: Regular rate, Regular Rhythm, Normal S1, Normal S2 Abdomen: Bowel Sounds Present, Soft, Non Tender, Non-Distended, No Hepato-splenomegaly Extremities: No edema, No Calf Tenderness Skin: No rashes, No breakdown Psych/Mental Status: Normal Affect, Appropriate Microbiology Past 72 Hours 04/15/18 02:30 Urine, Clean Catch Urine Culture - Preliminary Culture exhibits no growth. 04/15/18 01:05 Mucosa - Nose Respiratory Panel (PCR) - Final 04/15/18 01:15 Urine, Random Legionella Antigen - Final 04/15/18 01:15 Urine, Random Streptococcus pneumoniae Antigen (M - Final Laboratory Results 04/15/18 02:30: Ur Random Sodium 49 04/16/18 05:15: WBC 6.4, RBC 4.33 L, Hgb 12.9 L, Hct 42.0, MCV 97.0 H, MCH 29.8, MCHC 30.7 L, RDW 14.8 H, RDW Differential 50.6 H, Plt Count 176, MPV 10.0, Immature Gran % (Auto) 0.800, Neut % (Auto) 89.0 H, Lymph % (Auto) 6.3 L, Ector % (Auto) 3.9, Eos % (Auto) 0.0, Baso % (Auto) 0.0, Absolute Neuts (auto) 5.7, Absolute Lymphs (auto) 0.40 L, Total Counted Not Reportable, Differential Comment SCANNED 04/16/18 05:15: Sodium 143, Potassium 4.7, Chloride 109 H, Carbon Dioxide 26.0, Anion Gap 8, BUN 33 H, Creatinine 1.52 H, Estim Creat Clear Calc 40.05, Est GFR (MDRD) Af Amer 57 L, Est GFR (MDRD) Non-Af 47 L, BUN/Creatinine Ratio 21.7 H, Glucose 182 H, Calcium 7.9 L Current Medications Acetaminophen (Tylenol) 650 mg PO Q4H PRN PRN PRN Reason: FEVER Acetaminophen (Tylenol) 650 mg PO Q6H PRN PRN PRN Reason: Mild Pain (scale 0-3)/T>100.7 Al Hydroxide/Mg Hydroxide (Mylanta Ii) 30 ml PO Q6H PRN PRN PRN Reason: Gastric burning Albuterol Sulfate (Ventolin Aerosols) 2.5 mg INHALATION Q2H PRN PRN PRN Reason: SHORTNESS OF BREATH Albuterol/Ipratropium (Duoneb) 3 ml INHALATION Q4HWA.RT [facility] Last Admin: 04/16/18 10:40 Dose: 3 ml Atorvastatin Calcium (Lipitor) 10 mg PO QHS [facility] Last Admin: 04/15/18 21:35 Dose: 10 mg Bisacodyl (Dulcolax) 15 mg PO DAILY [facility] Last Admin: 04/16/18 08:12 Dose: 15 mg Buspirone HCl (Buspar) 7.5 mg PO BID [facility] Last Admin: 04/16/18 08:11 Dose: 7.5 mg Calamine/Phenol (Calmoseptine Ointment) 1 applic TOPICAL 4X/DAY [facility] PRN Reason: Protocol Last Admin: 04/16/18 08:11 Dose: 1 applicatio Fenofibrate (Tricor) 48 mg PO DAILY [facility] Last Admin: 09/04/18 08:15 Dose: 48 mg Guaifenesin (Mucinex) 1,200 mg PO BID [facility] Last Admin: 04/16/18 08:14 Dose: Not Given Heparin Sodium (Porcine) (Heparin Na) 5,000 unit SC Q12 [facility] Last Admin: 04/16/18 08:13 Dose: 5,000 unit Sodium Chloride () 1,000 mls @ 125 mls/hr IV .Q8H [facility] Last Admin: 04/16/18 08:10 Dose: 125 mls/hr Piperacillin Sod/Tazobactam Sod (Zosyn) 3.375 gm in 50 mls @ 12.5 mls/hr IV Q8 [facility] Last Admin: 04/16/18 05:24 Dose: 12.5 mls/hr [place] Carbonate ([place] Carbonate) 300 mg PO BID [facility] Last Admin: 04/16/18 08:13 Dose: 300 mg Loratadine (Claritin) 10 mg PO DAILY [facility] Last Admin: 04/16/18 08:12 Dose: 10 mg Lorazepam (Ativan) 0.5 mg PO BID PRN PRN PRN Reason: ANXIETY Magnesium Hydroxide (Milk Of Magnesia) 30 ml PO DAILY PRN PRN PRN Reason: Constipation Melatonin (Melatonin) 3 mg PO QHS [facility] Last Admin: 04/15/18 21:36 Dose: 3 mg Methylprednisolone (Solu-Medrol) 40 mg IV Q8 [facility] Last Admin: 04/16/18 05:23 Dose: 40 mg Metoprolol Tartrate (Lopressor (Beta Randell)) 25 mg PO BID [facility] Last Admin: 04/16/18 08:13 Dose: 25 mg Montelukast Sodium (Singulair) 10 mg PO DAILY [facility] Last Admin: 04/16/18 08:14 Dose: 10 mg Olanzapine (Zyprexa) 20 mg PO DAILY [facility] Last Admin: 04/16/18 08:15 Dose: 20 mg Ondansetron HCl (Zofran) 4 mg IV Q8H PRN PRN PRN Reason: NAUSEA Promethazine HCl (Phenergan) 12.5 mg IV Q6H PRN PRN PRN Reason: NAUSEA/VOMITING Psyllium Hydrophilic Mucilloid (Metamucil) 1 packet PO DAILY [facility] Last Admin: 04/16/18 08:14 Dose: 1 packet Pyridoxine HCl (Vitamin B-6) 100 mg PO DAILY [facility] Last Admin: 04/16/18 08:15 Dose: 100 mg Risperidone (Risperdal) 1 mg PO BID [facility] Last Admin: 04/16/18 08:14 Dose: 1 mg Senna/Docusate Sodium (Senokot-S, Tory-Colace) 3 tablet PO DAILY [facility] Last Admin: 04/16/18 08:14 Dose: 3 tablet Sodium Polystyrene Sulfonate (Kayexalate) 15 gm PO DAILY [facility] Last Admin: 04/16/18 08:17 Dose: 15 gm Medical Necessity - Tobacco Use Smoking Status: Former smoker - Patient quit cigarette tobacco use approximately 8 months prior. Tobacco Use: Non-smoker Assessment/Plan All Active Problems (Last Updated 04/15/18 @ 01:40 by Estella Cavazos) Acute respiratory failure with hypoxia (Acute) HCAP (healthcare-associated pneumonia) (Acute) Sepsis (Acute) 1. acute hypoxic and hypercapnic respiratory failure 2/2 HCAP +/- COPD wean oxygen as tolerated follow up with pulm as outpt 2. Suspected gram negative pneumonia on [facility] pulm toilet strep, legionella and resp panel negative sepsis not present Vancomycin discontinued Plan to de-escalate antibiotics in the next 24 hours if cultures remain negative 3. suspected COPD exacerbation steroids and BDs 4. CKD 3 unknown baseline monitor Appears stable 5. DVT proph: SQ heparin. 6. Disposition: Plan is for return to [facility] over the next 24-48 hours. Code Visit Inpatient E&M: 93823 Subs Hosp L2
--- NOTE | 2018-04-16 10:53 | CASEMGMT ---
Addendum entered by Yajaira Adams 04/16/18 11:30: Spoke with Vaishnavi at [facility]. Precert will be started. If pt is ready for d/c prior to obtaining insurance preauth, pt can return under Medicaid benefit and [facility] will change to Skilled LOC when appropriate. Physician informed that pt can be d/c when ready. Possible d/c tomorrow. Vaishnavi at [facility] notified of tentative plan. Plan: [facility] when medically ready RODRIGUEZ Oakes Original Note: Social Work Pt is admitted from [facility]. Met with pt in room and pt plans to return to [facility] when released from hospital. VM left for Mayela at [facility] requesting return call as pt will likely need a new precert prior to return to facility. SW to follow. Plan: [facility], pending insurance precert RODRIGUEZ Oakes
[2018-04-16 15:02] LABS: Urine Sodium 33 mmol/L (Not Establ.)
[2018-04-16] MEDS: Ondansetron 4 MG/2 ML Vial IV (17:02)
[2018-04-16] MEDS: MELATONIN 3 MG TABLET PO (21:19)
[2018-04-16] MEDS: Atorvastatin Calcium 10 MG Tablet PO (21:20)
[2018-04-16] MEDS: guaiFENesin 1,200 MG Tablet 1200 MG PO (21:20)
[2018-04-17] VITALS (11 sets, daily range): BP systolic 130–142; BP diastolic 62–76; PULSE 50–77; RESP 14–25; TEMP 36.5–36.6; O2SAT 4–95
--- NOTE | 2018-04-17 01:12 | CPS ---
PT UNABLE TO TOLERATE
[2018-04-17] MEDS: 0.9% Normal Saline 1,000 ML 125 ML IV (01:24)
[2018-04-17] MEDS: Piperacil/Tazobactam 3.375 GM/50 ML ML IV (05:58)
[2018-04-17 07:02] LABS: Anion Gap 6 (5-15); BUN 30 mg/dL (7-18); BUN/Creat Ratio 24.6 RATIO (10-20); Calcium,Total 7.9 mg/dL (8.5-10.1); Chloride 110 mmol/L (98-107); Creatinine, Serum 1.22 mg/dL (0.70-1.30); EST Glomerular Filtration Rate 61 mL/min (>60); Est Glom Filt Rate - Afr Amer 74 mL/min (>60); Glucose 145 mg/dL (74-106); Potassium 5.5 mmol/L (3.5-5.1); Sodium Level 139 mmol/L (136-145)
[2018-04-17] MEDS: Ipratropium/Albuterol Sulfate 3 ML AMPUL.NEB INHALATION ×2 (07:09→10:57)
--- NOTE | 2018-04-17 08:17 | PCM.PROGNOTE ---
Patient Problems: Active and Suspected Problems (Last Updated 04/15/18 @ 01:40 by Estella Cavazos) Acute respiratory failure with hypoxia (Acute) HCAP (healthcare-associated pneumonia) (Acute) Subjective: Patient did okay overnight. Patient reports subjective improvement in overall condition. Still with some dyspnea on exertion. Patient denies any chest pain or productive cough for me. - Physical Exam General: Alert, Cooperative, No apparent distress, - - Odd affect. Tangential conversation HEENT: Atraumatic, PERRLA, EOMI, Normocephalic, - - No scleral icterus or injection noted. Oral: Moist Mucosa, No Gingival or Mucosal Lesions/ Ulcerations Neck: Supple, No JVD, No Nodes, Trachea Midline Lungs: No rhonchi, No rales, Diminished, Wheezes, - - Symmetric expansion. No dullness to percussion. Cardiovascular: Regular rate, Regular Rhythm, Normal S1, Normal S2, No murmurs, No rub noted, No Gallop Abdomen: Bowel Sounds Present, Soft, Non Tender, Non-Distended Extremities: No cyanosis, Capillary Refill Less than 3 Seconds, Edema Skin: - - Venous stasis changes Musculoskeletal: No Tenderness to Palpation of Joints or Extremities Lymphatic: No Cervical, Supraclavicular, or Inguinal Adenopathy Neurological: Cranial nerves II-XII grossly intact, Neuro grossly intact Psych/Mental Status: Anxious Vital Signs Temp Pulse Resp BP Pulse Ox 36.5 C L 77 16 130/64 H 94 04/17/18 03:01 04/17/18 07:23 04/17/18 07:09 04/17/18 03:01 04/17/18 07:09 Oxygen Flow Rate (L/min) 4 Oxygen Delivery Method Nasal Cannula Weight: 103.3 kg Body Mass Index (BMI) 31.4 Intake and Output for Last 24 Hours 04/15/18 04/16/18 04/17/18 23:59 23:59 23:59 Intake Total 1598.8 / 1598.8 7556 / 7556 3807 / 3807 Output Total 200 / 200 2175 / 2175 700 / 700 Balance 1398.8 / 1398.8 5381 / 5381 3107 / 3107 Microbiology Past 72 Hours 04/15/18 02:30 Urine Culture - Preliminary Urine, Clean Catch Culture exhibits no growth. 04/15/18 01:05 Respiratory Panel (PCR) - Final Mucosa - Nose 04/15/18 01:15 Legionella Antigen - Final Urine, Random 04/15/18 01:15 Streptococcus pneumoniae Antigen (M - Final Urine, Random Laboratory Tests Past 24 Hrs 04/16/18 04/17/18 14:30 05:15 Sodium 139 Potassium 5.5 H Chloride 110 H Carbon Dioxide 23.0 Anion Gap 6 BUN 30 H Creatinine 1.22 Estim Creat Clear Calc 49.90 Est GFR (MDRD) Af Amer 74 Est GFR (MDRD) Non-Af 61 BUN/Creatinine Ratio 24.6 H Glucose 145 H Calcium 7.9 L Ur Random Sodium 33 Medical Necessity - Tobacco Use Smoking Status: Former smoker - Patient quit cigarette tobacco use approximately 8 months prior. Tobacco Use: Non-smoker Assessment/Plan All Active Problems (Last Updated 04/15/18 @ 01:40 by Estella Cavazos) Acute respiratory failure with hypoxia (Acute) HCAP (healthcare-associated pneumonia) (Acute) Sepsis (Acute) RECOMMENDATIONS: 1. Continue Zosyn, bronchodilators. Will wean steroids. 2. BiPAP utilization, if needed. At the current time, the patient is maintaining appropriate oxygen saturations on 4 L/min. 3. Continue baseline psychiatric medications. 4. Wean supplemental oxygen to maintain saturations at or above 90%. 5. Encourage incentive spirometer use and mobilize patient as tolerated. 6. Outpatient evaluation for lung nodule 7. Walking oximetry prior to discharge IMPRESSIONS: 1. Acute hypoxemic and hypercarbic respiratory failure likely secondary to HCAP Suspect that the patient may have a component of underlying COPD, given his prolonged smoking history. Patient will be treated empirically as a COPD exacerbation secondary to a right lower lobe pneumonia. Will wean steroid therapy. Patient can be transitioned to prednisone therapy if discharge happens today. This will need to be weaned over the next 12-14 days. Continue to use BiPAP for rescue if necessary. Patient is stating he may be using a wheelchair for ambulation at the assisted on discharge. If this is the plan, walking oximetry does not need to be completed. 2. Acute versus chronic kidney disease Unknown baseline renal function. Creatinine appears to be improving slowly. The patient's creatinine was elevated upon arrival to the hospital. This will need to be monitored longitudinally. However, at the current time, urine output is appropriate and there is no indication for renal replacement therapy. 3. Left upper lobe lung nodule Unknown chronicity, as there is no previous chest imaging studies available for comparison. However, given the patient's extensive smoking history, this will need to be followed up upon as an outpatient with repeat chest imaging and potential biopsy at some point in the future. Unclear if patient will be able to adequately give informed consent for any interventions. 4. History of coronary artery disease/hypertension/hyperlipidemia/depression/schizophrenia/history of colon cancer status post resection Complicates care, management, recovery and prognosis. Continue home medications as indicated. Recommend physical therapy evaluation. This note was generated with [employer] dictation software. It may contain incorrect words, spelling, and punctuation that were not noted in checking the note before signing. Code Visit Inpatient E&M: 89364 Subs Hosp L3
--- NOTE | 2018-04-17 08:22 | PN_ITS ---
Patient Problems: Active and Suspected Problems (Last Updated 04/15/18 @ 01:40 by Estella Cavazos ) Acute respiratory failure with hypoxia (Acute) HCAP (healthcare-associated pneumonia) (Acute) Subjective: Patient did okay overnight. Patient reports subjective improvement in overall condition. Still with some dyspnea on exertion. Patient denies any chest pain or productive cough for me. - Physical Exam General: Alert, Cooperative, No apparent distress, - - Odd affect. Tangential conversation HEENT: Atraumatic, PERRLA, EOMI, Normocephalic, - - No scleral icterus or injection noted. Oral: Moist Mucosa, No Gingival or Mucosal Lesions/ Ulcerations Neck: Supple, No JVD, No Nodes, Trachea Midline Lungs: No rhonchi, No rales, Diminished, Wheezes, - - Symmetric expansion. No dullness to percussion. Cardiovascular: Regular rate, Regular Rhythm, Normal S1, Normal S2, No murmurs, No rub noted, No Gallop Abdomen: Bowel Sounds Present, Soft, Non Tender, Non-Distended Extremities: No cyanosis, Capillary Refill Less than 3 Seconds, Edema Skin: - - Venous stasis changes Musculoskeletal: No Tenderness to Palpation of Joints or Extremities Lymphatic: No Cervical, Supraclavicular, or Inguinal Adenopathy Neurological: Cranial nerves II-XII grossly intact, Neuro grossly intact Psych/Mental Status: Anxious Vital Signs Temp Pulse Resp BP Pulse Ox 36.5 C L 77 16 130/64 H 94 04/17/18 03:01 04/17/18 07:23 04/17/18 07:09 04/17/18 03:01 04/17/18 07:09 Oxygen Flow Rate (L/min) 4 Oxygen Delivery Method Nasal Cannula Weight: 103.3 kg Body Mass Index (BMI) 31.4 Intake and Output for Last 24 Hours 04/15/18 04/16/18 04/17/18 23:59 23:59 23:59 Intake Total 1598.8 / 1598.8 7556 / 7556 3807 / 3807 Output Total 200 / 200 2175 / 2175 700 / 700 Balance 1398.8 / 1398.8 5381 / 5381 3107 / 3107 Microbiology Past 72 Hours 04/15/18 02:30 Urine Culture - Preliminary Urine, Clean Catch Culture exhibits no growth. 04/15/18 01:05 Respiratory Panel (PCR) - Final Mucosa - Nose 04/15/18 01:15 Legionella Antigen - Final Urine, Random 04/15/18 01:15 Streptococcus pneumoniae Antigen (M - Final Urine, Random Laboratory Tests Past 24 Hrs 04/16/18 04/17/18 14:30 05:15 Sodium 139 Potassium 5.5 H Chloride 110 H Carbon Dioxide 23.0 Anion Gap 6 BUN 30 H Creatinine 1.22 Estim Creat Clear Calc 49.90 Est GFR (MDRD) Af Amer 74 Est GFR (MDRD) Non-Af 61 BUN/Creatinine Ratio 24.6 H Glucose 145 H Calcium 7.9 L Ur Random Sodium 33 Medical Necessity - Tobacco Use Smoking Status: Former smoker - Patient quit cigarette tobacco use approximately 8 months prior. Tobacco Use: Non-smoker Assessment/Plan All Active Problems (Last Updated 04/15/18 @ 01:40 by Estella Cavazos) Acute respiratory failure with hypoxia (Acute) HCAP (healthcare-associated pneumonia) (Acute) Sepsis (Acute) RECOMMENDATIONS: 1. Continue Zosyn, bronchodilators. Will wean steroids. 2. BiPAP utilization, if needed. At the current time, the patient is maintaining appropriate oxygen saturations on 4 L/min. 3. Continue baseline psychiatric medications. 4. Wean supplemental oxygen to maintain saturations at or above 90%. 5. Encourage incentive spirometer use and mobilize patient as tolerated. 6. Outpatient evaluation for lung nodule 7. Walking oximetry prior to discharge IMPRESSIONS: 1. Acute hypoxemic and hypercarbic respiratory failure likely secondary to HCAP Suspect that the patient may have a component of underlying COPD, given his prolonged smoking history. Patient will be treated empirically as a COPD exacerbation secondary to a right lower lobe pneumonia. Will wean steroid therapy. Patient can be transitioned to prednisone therapy if discharge happens today. This will need to be weaned over the next 12-14 days. Continue to use BiPAP for rescue if necessary. Patient is stating he may [facility] If this is the plan , walking oximetry does not need to be completed. 2. Acute versus chronic kidney disease Unknown baseline renal function. Creatinine appears to be improving slowly. The patient's creatinine was elevated upon arrival to the hospital. This will need to be monitored longitudinally. However, at the current time, urine output is appropriate and there is no indication for renal replacement therapy. 3. Left upper lobe lung nodule Unknown chronicity, as there is no previous chest imaging studies available for comparison. However, given the patient's extensive smoking history, this will need to be followed up upon as an outpatient with repeat chest imaging and potential biopsy at some point in the future. Unclear if patient will be able to adequately give informed consent for any interventions. 4. History of coronary artery disease/hypertension/hyperlipidemia/depression /schizophrenia/history of colon cancer status post resection Complicates care, management, recovery and prognosis. Continue home medications as indicated. Recommend physical therapy evaluation. This note was generated with [employer] dictation software. It may contain incorrect words, spelling, and punctuation that were not noted in checking the note before signing. Code Visit Inpatient E&M: 95239 Subs Hosp L3
[2018-04-17 08:41] LABS: Anion Gap 7 (5-15); BUN 30 mg/dL (7-18); BUN/Creat Ratio 23.3 RATIO (10-20); Calcium,Total 7.7 mg/dL (8.5-10.1); Chloride 111 mmol/L (98-107); Creatinine, Serum 1.29 mg/dL (0.70-1.30); EST Glomerular Filtration Rate 57 mL/min (>60); Est Glom Filt Rate - Afr Amer 69 mL/min (>60); Estimated Creatinine Clearance 47.19 ml/min; Glucose 140 mg/dL (74-106); Potassium 5.4 mmol/L (3.5-5.1); Sodium Level 139 mmol/L (136-145)
[2018-04-17] MEDS: Menthol/Lanolin/Calamine/Znox 113 GM Tube 1 APPLIC TOPICAL ×2 (09:09→13:45)
[2018-04-17] MEDS: Loratadine 10 MG Tablet PO (09:10)
[2018-04-17] MEDS: busPIRone 15 MG TABLET 7.5 MG PO (09:10)
[2018-04-17] MEDS: Bisacodyl 5 MG Tablet 15 MG PO (09:10)
[2018-04-17] MEDS: Metoprolol Tartrate 25 MG Tablet PO (09:11)
[2018-04-17] MEDS: guaiFENesin 1,200 MG Tablet 1200 MG PO (09:11)
[2018-04-17] MEDS: Psyllium 1 PACKET PO (09:11)
[2018-04-17] MEDS: Fenofibrate 48 MG Tablet PO (09:12)
[2018-04-17] MEDS: Senna/Docusate Sodium 1 Tablet 3 TABLET PO (09:12)
[2018-04-17] MEDS: Montelukast 10 MG Tablet PO (09:12)
[2018-04-17] MEDS: OLANZapine 10 MG Tablet 20 MG PO (09:12)
[2018-04-17] MEDS: Pyridoxine HCl 100 MG Tablet PO (09:12)
[2018-04-17] MEDS: RisperiDONE 1 MG Tablet PO (09:12)
[2018-04-17] MEDS: Lithium Carbonate 300mg Capsule 300 MG PO (09:13)
[2018-04-17] MEDS: Heparin Injection (Vial) 5,000 UNIT/ML VIAL 5000 UNIT SC (09:14)
--- NOTE | 2018-04-17 12:00 | PCM.PN.HOSP ---
Patient Problems: Active and Suspected Problems (Last Updated 04/15/18 @ 01:40 by Estella Cavazos) Acute respiratory failure with hypoxia (Acute) HCAP (healthcare-associated pneumonia) (Acute) Subjective: breathing better. Vitals/I&O's: Vital Signs Temp Pulse Resp BP Pulse Ox 36.6 C 56 L 16 142/76 H 92 04/17/18 08:54 04/17/18 10:57 04/17/18 10:57 04/17/18 09:11 04/17/18 08:54 Oxygen Flow Rate (L/min) 4 Oxygen Delivery Method Nasal Cannula Weight: 103.3 kg Body Mass Index (BMI) 31.4 Intake and Output for Last 24 Hours 04/15/18 04/16/18 04/17/18 23:59 23:59 23:59 Intake Total 1598.8 / 1598.8 7556 / 7556 3807 / 3807 Output Total 200 / 200 2175 / 2175 900 / 900 Balance 1398.8 / 1398.8 5381 / 5381 2907 / 2907 General: Alert, No apparent distress HEENT: Atraumatic, Normocephalic Oral: Moist Mucosa, No Gingival or Mucosal Lesions/ Ulcerations Neck: No Nodes, Thyroid Normal Size and Texture Lungs: Clear to auscultation, No rhonchi, No wheeze, Diminished Cardiovascular: Regular rate, Regular Rhythm, Normal S1, Normal S2, No murmurs Abdomen: Bowel Sounds Present, Soft, Non Tender, Non-Distended, No Hepato-splenomegaly Microbiology Past 72 Hours 04/15/18 02:30 Urine, Clean Catch Urine Culture - Final Culture exhibits no growth. 04/15/18 01:05 Mucosa - Nose Respiratory Panel (PCR) - Final 04/15/18 01:15 Urine, Random Legionella Antigen - Final 04/15/18 01:15 Urine, Random Streptococcus pneumoniae Antigen (M - Final Laboratory Results 04/16/18 14:30: Ur Random Sodium 33 04/17/18 05:15: Sodium 139, Potassium 5.5 H, Chloride 110 H, Carbon Dioxide 23.0, Anion Gap 6, BUN 30 H, Creatinine 1.22, Estim Creat Clear Calc 49.90, Est GFR (MDRD) Af Amer 74, Est GFR (MDRD) Non-Af 61, BUN/Creatinine Ratio 24.6 H, Glucose 145 H, Calcium 7.9 L 04/17/18 08:24: Sodium 139, Potassium 5.4 H, Chloride 111 H, Carbon Dioxide 21.0, Anion Gap 7, BUN 30 H, Creatinine 1.29, Estim Creat Clear Calc 47.19, Est GFR (MDRD) Af Amer 69, Est GFR (MDRD) Non-Af 57 L, BUN/Creatinine Ratio 23.3 H, Glucose 140 H, Calcium 7.7 L Current Medications Acetaminophen (Tylenol) 650 mg PO Q4H PRN PRN PRN Reason: FEVER Acetaminophen (Tylenol) 650 mg PO Q6H PRN PRN PRN Reason: Mild Pain (scale 0-3)/T>100.7 Al Hydroxide/Mg Hydroxide (Mylanta Ii) 30 ml PO Q6H PRN PRN PRN Reason: Gastric burning Albuterol Sulfate (Ventolin Aerosols) 2.5 mg INHALATION Q2H PRN PRN PRN Reason: SHORTNESS OF BREATH Albuterol/Ipratropium (Duoneb) 3 ml INHALATION Q4HWA.RT [facility] Last Admin: 04/17/18 10:57 Dose: 3 ml Amoxicillin/Clavulanate Potassium (Augmentin Tablet) 875 mg PO BID [facility] Amoxicillin/Clavulanate Potassium (Augmentin Tablet) 875 mg PO X1 ONE Stop: 04/17/18 12:01 Atorvastatin Calcium (Lipitor) 10 mg PO QHS [facility] Last Admin: 04/16/18 21:20 Dose: 10 mg Bisacodyl (Dulcolax) 15 mg PO DAILY [facility] Last Admin: 04/17/18 09:10 Dose: 15 mg Buspirone HCl (Buspar) 7.5 mg PO BID [facility] Last Admin: 04/17/18 09:10 Dose: 7.5 mg Calamine/Phenol (Calmoseptine Ointment) 1 applic TOPICAL 4X/DAY [facility] PRN Reason: Protocol Last Admin: 04/17/18 09:09 Dose: 1 applicatio Fenofibrate (Tricor) 48 mg PO DAILY [facility] Last Admin: 04/17/18 09:12 Dose: 48 mg Guaifenesin (Mucinex) 1,200 mg PO BID [facility] Last Admin: 04/17/18 09:11 Dose: 1,200 mg Heparin Sodium (Porcine) (Heparin Na) 5,000 unit SC Q12 [facility] Last Admin: 04/17/18 09:14 Dose: 5,000 unit [place] Carbonate ([place] Carbonate) 300 mg PO BID [facility] Last Admin: 04/17/18 09:13 Dose: 300 mg Loratadine (Claritin) 10 mg PO DAILY [facility] Last Admin: 04/17/18 09:10 Dose: 10 mg Lorazepam (Ativan) 0.5 mg PO BID PRN PRN PRN Reason: ANXIETY Magnesium Hydroxide (Milk Of Magnesia) 30 ml PO DAILY PRN PRN PRN Reason: Constipation Melatonin (Melatonin) 3 mg PO QHS [facility] Last Admin: 04/16/18 21:19 Dose: 3 mg Methylprednisolone (Solu-Medrol) 40 mg IV Q12 [facility] Metoprolol Tartrate (Lopressor (Beta Randell)) 25 mg PO BID [facility] Last Admin: 04/17/18 09:11 Dose: 25 mg Montelukast Sodium (Singulair) 10 mg PO DAILY [facility] Last Admin: 04/17/18 09:12 Dose: 10 mg Olanzapine (Zyprexa) 20 mg PO DAILY [facility] Last Admin: 04/17/18 09:12 Dose: 20 mg Ondansetron HCl (Zofran) 4 mg IV Q8H PRN PRN PRN Reason: NAUSEA Last Admin: 04/16/18 17:02 Dose: 4 mg Promethazine HCl (Phenergan) 12.5 mg IV Q6H PRN PRN PRN Reason: NAUSEA/VOMITING Psyllium Hydrophilic Mucilloid (Metamucil) 1 packet PO DAILY [facility] Last Admin: 04/17/18 09:11 Dose: 1 packet Pyridoxine HCl (Vitamin B-6) 100 mg PO DAILY [facility] Last Admin: 04/17/18 09:12 Dose: 100 mg Risperidone (Risperdal) 1 mg PO BID [facility] Last Admin: 04/17/18 09:12 Dose: 1 mg Senna/Docusate Sodium (Senokot-S, Tory-Colace) 3 tablet PO DAILY [facility] Last Admin: 04/17/18 09:12 Dose: 3 tablet Sodium Polystyrene Sulfonate (Kayexalate) 15 gm PO DAILY@1400 [facility] Medical Necessity - Tobacco Use Smoking Status: Former smoker - Patient quit cigarette tobacco use approximately 8 months prior. Tobacco Use: Non-smoker Assessment/Plan All Active Problems (Last Updated 04/15/18 @ 01:40 by Estella Cavazos) Acute respiratory failure with hypoxia (Acute) HCAP (healthcare-associated pneumonia) (Acute) Sepsis (Acute) 1. acute hypoxic and hypercapnic respiratory failure 2/2 HCAP +/- COPD wean oxygen as tolerated follow up with pulm as outpt 2. Suspected gram negative pneumonia change Zosyn to augmentin and continue through 04/22 pulm toilet strep, legionella and resp panel negative sepsis not present 3. suspected COPD exacerbation steroids and BDs per pulm: taper steroids over 12-14 d 4. CKD 3 improved. likely at baseline monitor Appears stable 5. DVT proph: SQ heparin. 6. Disposition: Plan is for return to [facility]
--- NOTE | 2018-04-17 12:09 | PCM.TXEXTCAR ---
- Routine Orders/Code Status Routine Lab Work: CBC - every Sunday, BMP - every Sunday and Code Status: Full Code - Therapies Physical Therapy: Eval and Treat Occupational Therapy: Eval and Treat - Allergies/Procedures Done in Hospital Allergies/Adverse Reactions: Allergies No Known Allergies Allergy (Verified 04/14/18 19:01) Procedures: None - Type of Care/Length of Stay Estimated LOS: Convalescent Care Less Than 30 days Type of Care Needed: Skilled Rehab Potential: Fair Prognosis: Fair - Additional Orders/Day of Discharge Day of Discharge: 04/17/18 - Dietary and Speech Recommendations Dietitian Recommendations/Changes: Rec consider diet change to cardiac/low cholesterol, low sodium - Follow Up Care Primary Care Physician: Declan Reed MD [STAFF PHYSICIAN] - Within 2 Weeks Please Follow Up With: Girish Lopez MD When: 1-2 months
--- NOTE | 2018-04-17 12:11 | PCM.DC.SUM ---
Discharge Date and Diagnosis - Problem List Patient Problems: Active and Suspected Problems (Last Updated 04/15/18 @ 01:40 by Estella Cavazos) Acute respiratory failure with hypoxia (Acute) HCAP (healthcare-associated pneumonia) (Acute) Date of Admission: 04/14/18 Date of Discharge: 04/17/18 - Primary Discharge Diagnosis Active and Suspected Problems (Last Updated 04/15/18 @ 01:40 by Estella Cavazos) Acute respiratory failure with hypoxia (Acute) HCAP (healthcare-associated pneumonia) (Acute) - Secondary Discharge Diagnosis Chronic Problems (Last Updated 04/15/18 @ 01:40 by Estella Cavazos) Chronic obstructive pulmonary disease (Chronic) HTN (hypertension) (Chronic) HLD (hyperlipidemia) (Chronic) History of [place] (myocardial infarction) (Chronic) Anxiety and depression (Chronic) Schizophrenia (Chronic) Colon cancer (Chronic) Dysphagia (Chronic) Hospital Course and Treatment Imaging Results: Clinical Impression(s) from Imaging Studies Chest X-Ray 04/14/18 19:12 IMPRESSION: There are no acute findings. Electronically Signed: Brando Hernandez MD at 20:24 EDT , Service support , Chest CTA 04/14/18 21:37 IMPRESSION: Fatty liver. Hepatic cysts. Right lower lobe pneumonia. 20 mm left upper lobe nodule. This may be related to a pneumonia. No demonstrated pulmonary embolism or arterial dissection. Electronically Signed: Brando Hernandez MD at 22:40 EDT , Service support , John Operations: None Procedures: None Summary of Care Provided: The patient is a 77 year old M since with shortness of breath. Patient was found to have pneumonia. Patient started on broad-spectrum antibiotics with Zosyn and vancomycin given recent hospitalization and [facility] facility stay. Patient was seen by pulmonology and started on steroids. Patient is course has steadily improved. Today, the patient is doing better and will be discharged with a steroid taper, Augmentin and aerosols. Patient was noted to have a nodule on his CAT scan. This nodule may actually reflect pneumonia but will follow up with pulmonology for further outpatient evaluation. 1. acute hypoxic and hypercapnic respiratory failure 2/2 HCAP +/- COPD wean oxygen as tolerated follow up with pulm as outpt 2. Suspected gram negative pneumonia change Zosyn to augmentin and continue through 04/22 pulm toilet strep, legionella and resp panel negative sepsis not present 3. suspected COPD exacerbation steroids and BDs per pulm: taper steroids over 12-14 d 4. CKD 3 improved. likely at baseline monitor Appears stable 5. Lung Nodule suspect due to pneumonia follow up with pulmonology.[] Discharge Diet: Low fat/ Low Cholesterol Discharge Activity: Return to Normal Activity Call your doctor if you observe: Fever of 101 or Higher, Shortness of breath Home Medications: Medications to take at Discharge Albuterol Aerosols [Ventolin Aerosols] 2.5 mg INHALATION Q4H PRN PRN 04/14/18 Atorvastatin Calcium [Lipitor] 10 mg PO QHS 04/14/18 Bisacodyl [Laxative] 15 mg PO QHS 04/14/18 Buspirone HCl 7.5 mg PO BID 04/14/18 Fenofibrate,Micronized [Fenofibrate] 67 mg PO QHS 04/14/18 [place] Carbonate 300 mg PO BID 04/14/18 Loratadine 10 mg PO DAILY 04/14/18 Mag Hydrox/Al Hydrox/Simeth [Mylanta II] 30 ml PO Q4H PRN PRN 04/14/18 Magnesium Hydroxide [Milk Of Magnesia] 30 ml PO FR PRN 04/14/18 Melatonin/Pyridoxine HCl (B6) [Melatonin 3 mg Tablet] 1 each PO QHS 04/14/18 Metoprolol Tartrate 25 mg PO BID 04/14/18 Montelukast [Singulair] 10 mg PO DAILY 04/14/18 Olanzapine [Zyprexa] 20 mg PO QHS 04/14/18 Psyllium [Metamucil] 1 packet PO DAILY 04/14/18 Pyridoxine HCl [Vitamin B-6] 100 mg PO DAILY 04/14/18 Risperidone 1 mg PO BID 04/14/18 Sennosides/Docusate Sodium [Senna-Docusate Sodium Tablet] 3 each PO QHS 04/14/18 Sodium Polystyrene Sulfon/Sorb [Sps 15 gm/60 ml Suspension] 15 gm PO QHS 04/14/18 Acetaminophen [Tylenol Tablet] 650 mg PO Q4H PRN PRN tablet 04/17/18 Albuterol Aerosols [Ventolin Aerosols] 2.5 mg INHALATION Q2H PRN PRN vial.neb. 04/17/18 Amox/Clavulanate Tablet [Augmentin Tablet] 875 mg PO BID tablet 04/17/18 Guaifenesin [Mucinex] 1,200 mg PO BID tablet 04/17/18 Ipratropium/Albuterol Sulfate [Duoneb] 3 ml INHALATION Q4HWA.RT ampul.neb 04/17/18 Menthol/Lanolin/Calamine/Znox [Calmoseptine Ointment] 1 applic TOPICAL 4X/DAY tube 04/17/18 Prednisone 10 mg PO DAILY #30 tablet 04/17/18 Following Prescrptions Were Given to Patient: Prednisone 10 mg PO DAILY #30 tablet Primary Care Physician: Declan Reed MD [STAFF PHYSICIAN] - Within 2 Weeks Please Follow Up With: Girish Lopez MD When: 1-2 months Disposition: [facility] facility Minutes spent on discharge:: 32 Patient Condition:: Fair Medical Necessity - Tobacco Use Smoking Status: Former smoker - Patient quit cigarette tobacco use approximately 8 months prior. Tobacco Use: Non-smoker Meaningful Use Info Meaningful Use Diagnoses (Choose all that apply): None applicable Code Visit Inpatient E&M: 81499 Disch Hosp
--- NOTE | 2018-04-17 12:15 | DS.PCM_ITS ---
Discharge Date and Diagnosis - Problem List Patient Problems: Active and Suspected Problems (Last Updated 04/15/18 @ 01:40 by Estella Cavazos ) Acute respiratory failure with hypoxia (Acute) HCAP (healthcare-associated pneumonia) (Acute) Date of Admission: 04/14/18 Date of Discharge: 04/17/18 - Primary Discharge Diagnosis Active and Suspected Problems (Last Updated 04/15/18 @ 01:40 by Estella Cavazos ) Acute respiratory failure with hypoxia (Acute) HCAP (healthcare-associated pneumonia) (Acute) - Secondary Discharge Diagnosis Chronic Problems (Last Updated 04/15/18 @ 01:40 by Estella Cavazos) Chronic obstructive pulmonary disease (Chronic) HTN (hypertension) (Chronic) HLD (hyperlipidemia) (Chronic) History of [place] (myocardial infarction) (Chronic) Anxiety and depression (Chronic) Schizophrenia (Chronic) Colon cancer (Chronic) Dysphagia (Chronic) Hospital Course and Treatment Imaging Results: Clinical Impression(s) from Imaging Studies Chest X-Ray 04/14/18 19:12 IMPRESSION: There are no acute findings. Electronically Signed: Brando Hernandez MD at 20:24 EDT , Service support , Chest CTA 04/14/18 21:37 IMPRESSION: Fatty liver. Hepatic cysts. Right lower lobe pneumonia. 20 mm left upper lobe nodule. This may be related to a pneumonia. No demonstrated pulmonary embolism or arterial dissection. Electronically Signed: Brando Hernandez MD at 22:40 EDT , Service support , John Operations: None Procedures: None Summary of Care Provided: The patient is a 77 year old M since with shortness of breath. Patient was found to have pneumonia. Patient started on broad-spectrum antibiotics with Zosyn and vancomycin given recent hospitalization and intermediate facility stay. Patient was seen by pulmonology and started on steroids. Patient is course has steadily improved. Today, the patient is doing better and will be discharged with a steroid taper, Augmentin and aerosols. Patient was noted to have a nodule on his CAT scan. This nodule may actually reflect pneumonia but will follow up with pulmonology for further outpatient evaluation. 1. acute hypoxic and hypercapnic respiratory failure * 2/2 HCAP +/- COPD * wean oxygen as tolerated * follow up with pulm as outpt 2. Suspected gram negative pneumonia * change Zosyn to augmentin and continue through 04/22 * pulm toilet * strep, legionella and resp panel negative * sepsis not present 3. suspected COPD exacerbation * steroids and BDs * per pulm: taper steroids over 12-14 d 4. CKD 3 * improved. * likely at baseline * monitor * Appears stable 5. Lung Nodule * suspect due to pneumonia * follow up with pulmonology.[] Discharge Diet: Low fat/ Low Cholesterol Discharge Activity: Return to Normal Activity Call your doctor if you observe: Fever of 101 or Higher, Shortness of breath Home Medications: Medications to take at Discharge Albuterol Aerosols [Ventolin Aerosols] 2.5 mg INHALATION Q4H PRN PRN 04/14/18 Atorvastatin Calcium [Lipitor] 10 mg PO QHS 04/14/18 Bisacodyl [Laxative] 15 mg PO QHS 04/14/18 Buspirone HCl 7.5 mg PO BID 04/14/18 Fenofibrate,Micronized [Fenofibrate] 67 mg PO QHS 04/14/18 [place] Carbonate 300 mg PO BID 04/14/18 Loratadine 10 mg PO DAILY 04/14/18 Mag Hydrox/Al Hydrox/Simeth [Mylanta II] 30 ml PO Q4H PRN PRN 04/14/18 Magnesium Hydroxide [Milk Of Magnesia] 30 ml PO FR PRN 04/14/18 Melatonin/Pyridoxine HCl (B6) [Melatonin 3 mg Tablet] 1 each PO QHS 04/14/18 Metoprolol Tartrate 25 mg PO BID 04/14/18 Montelukast [Singulair] 10 mg PO DAILY 04/14/18 Olanzapine [Zyprexa] 20 mg PO QHS 04/14/18 Psyllium [Metamucil] 1 packet PO DAILY 04/14/18 Pyridoxine HCl [Vitamin B-6] 100 mg PO DAILY 04/14/18 Risperidone 1 mg PO BID 04/14/18 Sennosides/Docusate Sodium [Senna-Docusate Sodium Tablet] 3 each PO QHS Sodium Polystyrene Sulfon/Sorb [Sps 15 gm/60 ml Suspension] 15 gm PO QHS Acetaminophen [Tylenol Tablet] 650 mg PO Q4H PRN PRN tablet 04/17/18 Albuterol Aerosols [Ventolin Aerosols] 2.5 mg INHALATION Q2H PRN PRN vial.neb. 04/17/18 Amox/Clavulanate Tablet [Augmentin Tablet] 875 mg PO BID tablet 04/17/18 Guaifenesin [Mucinex] 1,200 mg PO BID tablet 04/17/18 Ipratropium/Albuterol Sulfate [Duoneb] 3 ml INHALATION Q4HWA.RT ampul.neb 04/17 Menthol/Lanolin/Calamine/Znox [Calmoseptine Ointment] 1 applic TOPICAL 4X/DAY tube 04/17/18 Prednisone 10 mg PO DAILY #30 tablet 04/17/18 Following Prescrptions Were Given to Patient: Prednisone 10 mg PO DAILY #30 tablet Primary Care Physician: Declan Reed MD [STAFF PHYSICIAN] - Within 2 Weeks Please Follow Up With: Girish Lopez MD When: 1-2 months Disposition: Snf facility Minutes spent on discharge:: 32 Patient Condition:: Fair Medical Necessity - Tobacco Use Smoking Status: Former smoker - Patient quit cigarette tobacco use approximately 8 months prior. Tobacco Use: Non-smoker Meaningful Use Info Meaningful Use Diagnoses (Choose all that apply): None applicable Code Visit Inpatient E&M: 99282 Disch Hosp
--- NOTE | 2018-04-17 13:10 | CASEMGMT ---
Received d/c orders. Faxed orders to [facility]. [place] [facility] [place], but they had no one in this area today. CATHI called [facility] and they could transport patient at 3p via wc van. SW notified RN, marketing secretary, and Chelsea at [facility]. SENIOR STRATEGY MANAGER also notified who notified patient. Plan: d/c back to [facility] under skilled level of care. [facility] transported him via wc van. Kika WALKER MSW
[2018-04-17] MEDS: Sodium Polystyrene Sulfonate 15 GM/60 ML UDC PO (13:46)
[2018-04-17] MEDS: Amox/Clavulanate 875 MG Tablet PO (13:51)
== END 2018-04-17 15:46 | disposition skilled nursing facility (03) | DRG 177 ==
LOC: ED 19:54 → ICU 23:15 → PCU 04-15 04:01
PROVIDERS: Admitting Provider Family Medicine; Emergency Provider Emergency Medicine; Family Provider Family Medicine; PCP Family Medicine
DX: J15.6 Pneumonia due to other Gram-negative bacteria (principal); J96.01 Acute respiratory failure with hypoxia; J96.02 Acute respiratory failure with hypercapnia; J44.1 Chronic obstructive pulmonary disease with (acute) exacerbation; J44.0 Chronic obstructive pulmonary disease with (acute) lower respiratory infection; I25.2 Old myocardial infarction; E78.5 Hyperlipidemia, unspecified; Z85.038 Personal history of other malignant neoplasm of large intestine; Y95 Nosocomial condition; F41.9 Anxiety disorder, unspecified; F32.9 Major depressive disorder, single episode, unspecified; Z90.49 Acquired absence of other specified parts of digestive tract; Z87.891 Personal history of nicotine dependence
CPT/HCPCS: 36415; 36600; 71045; 71275; 80048; 80053; 82570; 82803; 83605; 83735; 83880; 84300; 84484; 85025; 85610; 85730; 87040; 87086; 87449; 87633; 87641; 93005; 94002; 94003; 94640; 94667; 94668; 94762; 97110; 97116; 97162; 97166; 97802; 99285; J7030; J7040; Q9967; A4216; J2405

== ENCOUNTER 2018-05-31 16:32 | Emergency (ER) | payer MEDICARE, MEDICAID, SELFPAY ==
[2018-05-31] VITALS (9 sets, daily range): BP systolic 138–151; BP diastolic 63–79; PULSE 62–66; RESP 14–18; TEMP 36.9; O2SAT 92–94; BMI 29.3
--- NOTE | 2018-05-31 16:53 | CM.ED ---
Social Work Note Referral from Pamela Araujo RN to evaluate pt for suicidal ideation for appropriateness of 1:1 sitter. Face to face with the pt who presents with flat affect as evidenced by no change in expression or tone of voice throughout conversation. Expression does not display any emotion throughout assessment. Pt speaks clearly. Introduced self and role at [facility]. Pt states that he has had suicidal ideation for the past few days. Reports that he would want his heart to stop, but has no idea how he would do that. Denies having a plan or intent/means to complete suicide at this time. Pt denies having suicide attempts in the past. Inquire why the pt was brought here today. Pt states because he is hearing voices. These voices are telling me I am God, Must be Satan lying to me. States that he does not know which bible it is in, but reports it states, Marc Flores is my real father. Pt was raised Confucianist and reports to now be Taoism. Has a significant fixation on jew (Anabaptism) figures. Denies that the auditory hallucinations are command or that they are telling him to harm himself. Pt will need to be evaluated by crisis for potential psychiatric placement due to auditory hallucinations with paranoid fixation on Satan. After suicide risk assessment, do not believe that the pt requires 1:1 sitter at this time. Communicated to bedside RN and attending physician. PLAN: Evaluation by [facility]. TAVIA Obrien, AARON
--- NOTE | 2018-05-31 16:55 | ED.RN ---
PER [facility] PT IS SUICIDAL. BELONGINGS AND EQUIPMENT REMOVED FROM ROOM. PT IS IN 1:1 SITTER PRESENT AT BEDSIDE. PT STATES HE IS THE SON OF EVERARDO DAVIES AND CAN RAISE THE . STATES I WANT TO STOP MY HEART. WHEN ASKED HOW HE PLANS TO DO SO HE STATED I DON'T KNOW. HE HAS NEVER TRIED TO KILL HIMSELF IN THE PAST. HE IS ABLE TO ANSWER QUESTIONS APPROPRIATELY. HX OF FALLS. BRUISING ON ABD AND INTAKE STARING STRIPS ON FOREHEAD. FROM PAST FALL. PT IS CALM AND RESTING IN BED. NO S/S OF DISTRESS. Rina DUNCAN RN.
--- NOTE | 2018-05-31 17:07 | ED.VISSUMM ---
- ER Visit Summary Date of Service: 05/31/18 Chief Complaint: Depression, auditory hallucinations History of Present Illness: The patient is a 77 M presenting with thoughts of . Patient states that he wants to but does not have a plan to kill himself. He does not know how he would do it. He complains of auditory hallucinations. He states that carmela keeps telling him that he his god. He states these thoughts have been ongoing for the past 2 days. He has a history of schizophrenia. Physical Examination: Vitals are stable. Patient is afebrile. Alert no acute distress. HEENT exam is unremarkable. Neck is supple. Lungs are clear and equal bilaterally. Heart is regular rate and rhythm. Abdomen is soft nontender nondistended. Extremities are unremarkable. Skin is warm and dry. No focal neurologic deficit. Depression Remainder of exam is unremarkable. Emergency Department Course and Treatment: CBC, chemistries unremarkable. Creatinine is 1.46 at his baseline. Urinalysis unremarkable. [place] level is 1.10. Alcohol and tox are negative. Chest x-ray shows no acute process. Patient was seen by the counseling center. He will be transferred to the [place]. Disposition: Transfer to [place] Impression: Auditory hallucinations, suicidal ideation This note was generated with [employer] dictation software. It may contain incorrect words, spelling, and punctuation that were not noted in review of the chart prior to signing ED Disposition - Plan for ED Patient: Chief Complaint: Suicidal Referrals: Joelle Charles MD [Primary Care Provider] -
--- NOTE | 2018-05-31 17:10 | ED.DCSUM_ITS ---
- ER Visit Summary Date of Service: 05/31/18 Chief Complaint: Depression, auditory hallucinations History of Present Illness: The patient is a 77 M presenting with thoughts of . Patient states that he wants to but does not have a plan to kill himself. He does not know how he would do it. He complains of auditory hallucinations. He states that carmela keeps telling him that he his god. He states these thoughts have been ongoing for the past 2 days. He has a history of schizophrenia. Physical Examination: Vitals are stable. Patient is afebrile. Alert no acute distress. HEENT exam is unremarkable. Neck is supple. Lungs are clear and equal bilaterally. Heart is regular rate and rhythm. Abdomen is soft nontender nondistended. Extremities are unremarkable. Skin is warm and dry. No focal neurologic deficit. Depression Remainder of exam is unremarkable. Emergency Department Course and Treatment: CBC, chemistries unremarkable. Creatinine is 1.46 at his baseline. Urinalysis unremarkable. [place] level is 1.10. Alcohol and tox are negative. Chest x-ray shows no acute process. Patient was seen by the counseling center. He will be transferred to the [place]. Disposition: Transfer to [place] Impression: Auditory hallucinations, suicidal ideation This note was generated with [employer] dictation software. It may contain incorrect words, spelling, and punctuation that were not noted in review of the chart prior to signing ED Disposition - Plan for ED Patient: Chief Complaint: Suicidal Referrals: Joelle Charles MD [Primary Care Provider] -
--- NOTE | 2018-05-31 17:15 | ED.RN ---
PER ER PATIENT IS CLEARED OF SUICIDAL IDEATION. PT TAKEN OUT OF 1:1 PRECAUTIONS. BLINDS LEFT OPEN AND BELONGINGS STILL IN CONTAINER. PT STILL REQUIRES CLEARANCE FOR MENTAL HEALTH. Rina DUNCAN RN. [id number]
[2018-05-31 17:27] LABS: Absolute Lymphocyte Count 1.05 X10^3/ul (0.83-4.51); Absolute Neutrophil Count 5.9 X10^3/uL (2.0-7.7); Basophil# 0.02 X10^3/uL; Basophil% 0.3 % (0-1); Eosinophil# 0.16 X10^3/uL; Hematocrit 42.6 % (40-54); Lymphocyte # 1.05 X10^3/ul (4.0); Lymphocyte % 13.4 % (19-41); Mean Corp Hgb Conc 30.5 g/gl (32-36); Mean Corpuscular Hgb 29.3 pg (27.0-32.0); Mean Corpuscular Volume 96.2 fL (80-94); Mean Platelet Vol. 10.2 fl (6.2-12.0); Monocyte# 0.72 X10^3/uL; Monocyte% 9.2 % (0-10); Neutrophil # 5.86 X10^3/uL (2.7-7.7); Neutrophil % 74.6 % (47-70); Platelet Count 187 K/mm3 (150-450); RBC Distribution Width CV 14.8 % (11.6-14.6); RBC Distribution Width SD 50.1 fl (35.1-43.9); Red Blood Count 4.43 M/mm3 (4.6-6.2); White Blood Count 7.9 K/mm3 (4.4-11.0)
[2018-05-31 17:30] LABS: POSITIVE COUNT NO; POSITIVE DIFFERENTIAL NO; POSITIVE MORPHOLOGY NO
[2018-05-31 17:37] LABS: Alcohol, Blood (Medical)-Serum < 3.0 mg/dL
[2018-05-31 17:38] LABS: Anion Gap 3 (5-15); BUN 19 mg/dL (7-18); Calcium,Total 8.6 mg/dL (8.5-10.1); Chloride 110 mmol/L (98-107); Creatinine, Serum 1.46 mg/dL (0.70-1.30); EST Glomerular Filtration Rate 50 mL/min (>60); Est Glom Filt Rate - Afr Amer 60 mL/min (>60); Glucose 92 mg/dL (74-106); Potassium 4.5 mmol/L (3.5-5.1); Sodium Level 140 mmol/L (136-145)
[2018-05-31 18:35] LABS: Bacteria 0 SEEN /hpf (None Seen); Mucous, Urine 0 SEEN /hpf (<or=2+); Red Blood Cells-Urine 0 SEEN /hpf (0-5); Squamous Epithelial Cells - UA 0 SEEN /hpf (0-5); White Blood Cells 0 SEEN /hpf (0-5)
[2018-05-31 18:51] LABS: Glucose, Dipstick Normal (Normal); Ketone-Dipstick Negative (Negative); Leukocyte Esterase-Dipstick Negative /ul (Negative); Nitrite-Dipstick Negative (Negative); Occult Blood-Urine Negative /ul (Negative); Protein-Dipstick Negative (Negative); Specific Gravity, Urine 1.005 (1.002-1.030); Urine Bilirubin Dipstick Negative (Negative); Urine Urobilinogen Normal (Normal)
[2018-05-31 18:54] LABS: Color, Urine Yellow (Yellow); Urine Clarity Clear (Clear)
[2018-05-31 19:05] LABS: Amphetamine Urine VISTA NEGATIVE (<1000 ng/mL); Barbiturate Urine VISTA NEGATIVE (< 200 ng/mL); Benzodiazepine Urine VISTA NEGATIVE (< 200 ng/mL); Cocaine Urine VISTA NEGATIVE (< 300 ng/mL); Ecstacy Urine VISTA NEGATIVE (< 500 ng/mL); Methadone Urine VISTA NEGATIVE (< 300 ng/mL); PCP Urine VISTA NEGATIVE (< 25 ng/mL); THC Urine VISTA NEGATIVE (< 50 ng/mL); Vista UDS pH Range 7
--- NOTE | 2018-05-31 20:25 | ED.RN ---
[facility] REQUESTING PHYSICIAN STATEMENT ABOUT MEDICAL CLEARANCE. DR RAYA NOTIFIED
--- NOTE | 2018-05-31 20:30 | RAD_ITS ---
STUDY: X-RAY CHEST REASON FOR EXAM: Male, 77 years old. Mental health, suicidal TECHNIQUE: Single AP portable view of the chest. # of Images: 1 COMPARISON: 04/14/2018 FINDINGS: The lungs are clear and expanded. There is no demonstrated pleural abnormality. There is borderline cardiomegaly. Normal mediastinum and shakira. Normal visualized pulmonary arteries. Normal visualized aortic arch and descending thoracic aorta. Normal visualized thoracic spine. Normal visualized ribs, clavicles, and shoulders. There is no demonstrated abnormality of the visualized soft tissue structures of the upper abdomen. RAD/Chest 1 View (Portable) IMPRESSION: No acute findings Electronically Signed: Armand Sellers DO at 20:43 EDT Tel , Service support ,
[2018-06-01] VITALS (8 sets, daily range): BP systolic 137–149; BP diastolic 50–68; PULSE 73–77; RESP 16–18; O2SAT 90–92
--- NOTE | 2018-06-01 03:40 | ED.RN ---
SPOKE WITH MAYRA RODRIGEZ AT [facility]. GAVE UPDATE THAT PATIENT WILL BE LEAVING OUR FACILITY AROUND 8 AM THIS MORNING. [facility] RN ALSO STATES THE PATIENT TAKES HIS PILLS CRUSHED IN APPLESAUCE
[2018-06-01] MEDS: Montelukast 10 MG Tablet PO (06:29)
[2018-06-01] MEDS: Metoprolol Tartrate 25 MG Tablet PO (06:29)
[2018-06-01] MEDS: Senna/Docusate Sodium 1 Tablet 3 TABLET PO (06:29)
[2018-06-01] MEDS: Lithium Carbonate 300mg Capsule 300 MG PO (06:29)
[2018-06-01] MEDS: OLANZapine 10 MG Tablet 20 MG PO (06:29)
[2018-06-01] MEDS: busPIRone 5 MG Tablet 7.5 MG PO (06:29)
[2018-06-01] MEDS: RisperiDONE 0.5 MG Tablet 1 MG PO (06:29)
[2018-06-01] MEDS: Atorvastatin Calcium 10 MG Tablet PO (06:29)
== END 2018-06-01 08:34 ==
PROVIDERS: Emergency Provider Emergency Medicine; Family Provider Family Medicine; PCP Family Medicine
DX: F20.9 Schizophrenia, unspecified (principal); F32.9 Major depressive disorder, single episode, unspecified; R45.851 Suicidal ideations; F41.9 Anxiety disorder, unspecified; J44.9 Chronic obstructive pulmonary disease, unspecified; I10 Essential (primary) hypertension; K21.9 Gastro-esophageal reflux disease without esophagitis; Z79.899 Other long term (current) drug therapy; Z87.891 Personal history of nicotine dependence
CPT/HCPCS: 36415; 71045; 80048; 80178; 80307; 80320; 81001; 85025; 93005; 99285; P9612; G0480

== ENCOUNTER 2018-06-04 17:23 | Emergency (ER) | payer MEDICARE, MEDICAID, SELFPAY ==
[2018-06-04 17:24] VITALS: BP 137/66; PULSE 91; RESP 18; TEMP 36.8; O2SAT 88; BMI 30.6
--- NOTE | 2018-06-04 17:49 | ED.RN ---
PER DR RECIO THE SUICIDE PRECAUTIONS WERE REMOVED ON THIS PATIENT DUE TO LOW RISK
--- NOTE | 2018-06-04 17:54 | ED.RN ---
marleny from crisis called and will be over to see pt
--- NOTE | 2018-06-04 18:18 | ED.VISSUMM ---
- ER Visit Summary Date of Service: 06/04/18 Chief Complaint: Depressed and stated he would suffocate himself History of Present Illness: The patient is a 77 M who was [facility] from [facility] because he does not like where he presently resides, and he informed his gift wrapper that he was going to put a bag over his head and ask for for an ointment of last rights. He presently has noticed thought of harming himself. He does voice that he does not like living at the nursing facility he is presently at. He does voice that he has auditory hallucinations and hears the devil speaking to him. He states he does not believe with the double is telling him. He was recently transferred to the [place] for depression with suicidal thoughts. Patient states he is unable to ambulate without assistance. He is unable to walk to the cafeteria without assistance and needs assistance to go the restroom. Since patient cannot walk on his own and has not been able to walk on his own for some time it is my opinion if his environment is made safe there is no concern if he were to have thoughts again of harming himself. Physical Examination: Vital signs noted and blood pressure elevated 137/66. There is evidence of fall/trauma to head several weeks ago with a Steri-Strip in place without evidence infection. There is no clinical findings of basal skull fracture. There is no TMJ tenderness. There is no evidence of malocclusion. There is no cervical spine tenderness. There is no acute findings on HEENT exam. Heart is regular. Lungs are clear to auscultation. Abdomen soft nontender. He has discomfort left lower quadrant secondary to fall 3 weeks ago. He is alert. He knows his name. He knows his hospital and knows the month. Motor sensory are intact. DTRs are symmetric with no clonus or Babinski. Cranial 2 through 12 are intact. Did not attempt to ambulate patient. As documented in the history of present illness he does admit that he has hallucinations in [place] and is talking to home. He does admit that he called his gift wrapper and stated that he would suffocate himself because he does not like where he presently lives. He has no future intense. In my opinion he does not have an organized plan. The reason for my conclusion that he does not have an organized plan is that he is unable to get out of bed without assistance. His modified sad person score is 4. Test Results: None were obtained since he had a full workup less than 1 week ago. Emergency Department Course and Treatment: Return to the [facility] facility Treatment Plan: Outpatient counseling Disposition: Discharged to nursing facility Impression: 1. Schizophrenia, chronic 2. Depression, not major This note was generated with [employer] dictation software. It may contain incorrect words, spelling, and punctuation that were not noted in review of the chart prior to signing ED Disposition - Plan for ED Patient: Disposition: Home or Assisted Living Chief Complaint: Suicidal Instructions: ED Depression Referrals: Joelle Charles MD [Primary Care Provider] - 1 Week Counseling,Center [GROUP OF PHYSICIANS] - 3-5 Days
--- NOTE | 2018-06-04 18:24 | ED.DCSUM_ITS ---
- ER Visit Summary Date of Service: 06/04/18 Chief Complaint: Depressed and stated he would suffocate himself History of Present Illness: The patient is a 77 M who was brought by ambulance from [facility] because he does not like where he presently resides, and he informed his burlap worker that he was going to put a bag over his head and ask for for an ointment of last rights. He presently has noticed thought of harming himself. He does voice that he does not like living at the nursing facility he is presently at. He does voice that he has auditory hallucinations and hears the devil speaking to him. He states he does not believe with the double is telling him. He was recently transferred to the [facility] for depression with suicidal thoughts. Patient states he is unable to ambulate without assistance. He is unable to walk to the cafeteria without assistance and needs assistance to go the restroom. Since patient cannot walk on his own and has not been able to walk on his own for some time it is my opinion if his environment is made safe there is no concern if he were to have thoughts again of harming himself. Physical Examination: Vital signs noted and blood pressure elevated 137/66. There is evidence of fall/trauma to head several weeks ago with a Steri-Strip in place without evidence infection. There is no clinical findings of basal skull fracture. There is no TMJ tenderness. There is no evidence of malocclusion. There is no cervical spine tenderness. There is no acute findings on HEENT exam. Heart is regular. Lungs are clear to auscultation. Abdomen soft nontender. He has discomfort left lower quadrant secondary to fall 3 weeks ago. He is alert. He knows his name. He knows his hospital and knows the month. Motor sensory are intact. DTRs are symmetric with no clonus or Babinski. Cranial 2 through 12 are intact. Did not attempt to ambulate patient. As documented in the history of present illness he does admit that he has hallucinations in [place] and is talking to home. He does admit that he called his burlap worker and stated that he would suffocate himself because he does not like where he presently lives. He has no future intense. In my opinion he does not have an organized plan. The reason for my conclusion that he does not have an organized plan is that he is unable to get out of bed without assistance. His modified sad person score is 4. Test Results: None were obtained since he had a full workup less than 1 week ago. Emergency Department Course and Treatment: Return to the [facility] facility Treatment Plan: Outpatient counseling Disposition: Discharged to nursing facility Impression: 1. Schizophrenia, chronic 2. Depression, not major This note was generated with [employer] dictation software. It may contain incorrect words, spelling, and punctuation that were not noted in review of the chart prior to signing ED Disposition - Plan for ED Patient: Disposition: Home or Assisted Living Chief Complaint: Suicidal Instructions: ED Depression Referrals: Joelle Charles MD [Primary Care Provider] - [facility] [GROUP OF PHYSICIANS] - 3-5 Days
[2018-06-04 18:29] VITALS: PULSE 78; RESP 16; O2SAT 98
== END 2018-06-04 18:45 | disposition home or self-care (01) ==
PROVIDERS: Emergency Provider Emergency Medicine; Family Provider Family Medicine; PCP Family Medicine
DX: F20.89 Other schizophrenia (principal); F32.89 Other specified depressive episodes; I25.10 Atherosclerotic heart disease of native coronary artery without angina pectoris; I25.2 Old myocardial infarction; I10 Essential (primary) hypertension; J44.9 Chronic obstructive pulmonary disease, unspecified; E66.9 Obesity, unspecified; Z68.30 Body mass index [BMI] 30.0-30.9, adult; Z79.899 Other long term (current) drug therapy; Z87.891 Personal history of nicotine dependence
CPT/HCPCS: 99284

== ENCOUNTER 2018-06-06 15:49 | Emergency (ER) | payer MEDICARE, MEDICAID, SELFPAY ==
[2018-06-06 15:50] VITALS: BP 150/63; PULSE 51; RESP 16; TEMP 36.7; O2SAT 91
[2018-06-06 15:51] VITALS: BP 150/63; PULSE 51; RESP 16; TEMP 36.7; O2SAT 91; BMI 31.1
--- NOTE | 2018-06-06 16:38 | EKG12_ITS ---
Test Reason : Blood Pressure : / mmHG Vent. 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
--- NOTE | 2018-06-06 16:38 | CT_ITS ---
STUDY: CT BRAIN WITHOUT CONTRAST REASON FOR EXAM: Male, 77 years old. HALLUCINATIONS RADIATION DOSAGE (If Supplied By Facility): CTDIvol = ( 44.99 ) mGy, DLP = ( 829.85 ) mGycm Individualized dose optimization techniques were used for this CT. TECHNIQUE: Transaxial CT imaging of the brain was performed without administration of intravenous contrast material. COMPARISON: None. FINDINGS: Normal soft tissue structures. Normal calvarium. There are calcifications noted in the distal vertebral arteries. There are calcifications noted in the cavernous carotid arteries. This is consistent for atherosclerotic disease. Left cystic hygroma. There is mild cerebral atrophy with widening of the extra-axial spaces and ventricular dilatation. There are areas of decreased attenuation within the white matter tracts of the supratentorial brain, consistent with microvascular disease changes. Normal basal ganglia and thalami. Normal brainstem. There is mild cerebellar atrophy. There is no intracranial hemorrhage. There are no findings of an acute ischemic infarction. There is mild maxillary sinus disease. CT/Brain/Head without Contrast IMPRESSION: Chronic involutional changes of the brain. There are no acute findings. Electronically Signed: Brando Hernandez MD at 19:04 EDT , Service support ,
--- NOTE | 2018-06-06 16:45 | RAD_ITS ---
STUDY: X-RAY CHEST REASON FOR EXAM: Male, 77 years old. General illness mental health TECHNIQUE: Single frontal view of the chest. COMPARISON: None. FINDINGS: Chronic appearing increased interstitial lung markings. There is no demonstrated pleural abnormality. Normal heart size. Normal mediastinum and shakira. Normal visualized pulmonary arteries. There is atherosclerotic calcification of the aortic arch with tortuosity. There are diffuse degenerative changes of the visualized thoracic spine. There is degenerative osteoarthritis of the bilateral shoulders. There is no demonstrated abnormality of the visualized soft tissue structures of the upper abdomen. RAD/Chest 1 View (Portable) IMPRESSION: There are no acute findings. Electronically Signed: Brando Hernandez MD at 17:26 EDT , Service support ,
--- NOTE | 2018-06-06 16:45 | ED.RN ---
PT DENIES HAVING SUICIDAL IDEATION AND DR. BROWN IS AWARE, DR. BROWN WILL MEDICALLY CLEAR PT TO BE TRANSFERRED TO [facility].
[2018-06-06 17:26] LABS: Absolute Lymphocyte Count 0.98 X10^3/ul (0.83-4.51); Absolute Neutrophil Count 4.2 X10^3/uL (2.0-7.7); Basophil# 0.03 X10^3/uL; Basophil% 0.5 % (0-1); Eosinophil# 0.18 X10^3/uL; Hematocrit 40.6 % (40-54); Hemoglobin 12.4 g/dl (13.0-16.5); Lymphocyte # 0.98 X10^3/ul (4.0); Lymphocyte % 16.6 % (19-41); Mean Corp Hgb Conc 30.5 g/gl (32-36); Mean Corpuscular Hgb 29.4 pg (27.0-32.0); Mean Corpuscular Volume 96.2 fL (80-94); Mean Platelet Vol. 10.1 fl (6.2-12.0); Monocyte# 0.52 X10^3/uL; Monocyte% 8.8 % (0-10); Neutrophil # 4.15 X10^3/uL (2.7-7.7); Neutrophil % 70.3 % (47-70); Platelet Count 188 K/mm3 (150-450); RBC Distribution Width CV 14.6 % (11.6-14.6); RBC Distribution Width SD 49.3 fl (35.1-43.9); Red Blood Count 4.22 M/mm3 (4.6-6.2); White Blood Count 5.9 K/mm3 (4.4-11.0)
[2018-06-06 17:47] LABS: POSITIVE COUNT NO; POSITIVE DIFFERENTIAL NO; POSITIVE MORPHOLOGY NO
[2018-06-06 18:00] LABS: Alcohol, Blood (Medical)-Serum < 3.0 mg/dL
[2018-06-06 18:10] LABS: Anion Gap 5 (5-15); BUN 20 mg/dL (7-18); BUN/Creat Ratio 12.8 RATIO (10-20); Calcium,Total 8.4 mg/dL (8.5-10.1); Chloride 111 mmol/L (98-107); Creatinine, Serum 1.56 mg/dL (0.70-1.30); EST Glomerular Filtration Rate 46 mL/min (>60); Est Glom Filt Rate - Afr Amer 56 mL/min (>60); Estimated Creatinine Clearance 37.76 ml/min; Glucose 95 mg/dL (74-106); Potassium 4.2 mmol/L (3.5-5.1); Sodium Level 143 mmol/L (136-145)
[2018-06-06 18:41] LABS: Bacteria 0 SEEN /hpf (None Seen); Mucous, Urine 0 SEEN /hpf (<or=2+); Red Blood Cells-Urine 0 SEEN /hpf (0-5); Squamous Epithelial Cells - UA 0 SEEN /hpf (0-5)
[2018-06-06 18:51] LABS: Color, Urine Yellow (Yellow); Glucose, Dipstick Normal (Normal); Ketone-Dipstick Negative (Negative); Leukocyte Esterase-Dipstick Negative /ul (Negative); Nitrite-Dipstick Negative (Negative); Occult Blood-Urine Negative /ul (Negative); Protein-Dipstick Negative (Negative); Specific Gravity, Urine 1.005 (1.002-1.030); Urine Bilirubin Dipstick Negative (Negative); Urine Clarity Clear (Clear); Urine Urobilinogen Normal (Normal)
[2018-06-06 19:06] LABS: White Blood Cells 0-5 SEEN /hpf (0-5)
[2018-06-06 19:10] LABS: Amphetamine Urine VISTA NEGATIVE (<1000 ng/mL); Barbiturate Urine VISTA NEGATIVE (< 200 ng/mL); Benzodiazepine Urine VISTA NEGATIVE (< 200 ng/mL); Cocaine Urine VISTA NEGATIVE (< 300 ng/mL); Ecstacy Urine VISTA NEGATIVE (< 500 ng/mL); Methadone Urine VISTA NEGATIVE (< 300 ng/mL); PCP Urine VISTA NEGATIVE (< 25 ng/mL); THC Urine VISTA NEGATIVE (< 50 ng/mL); Vista UDS pH Range 6
--- NOTE | 2018-06-06 19:38 | ED.VISSUMM ---
- ER Visit Summary Date of Service: 06/06/18 Chief Complaint: Sent for medical clearance History of Present Illness: The patient is a 77 M who was sent for medical clearance for psychiatric admission at [facility]. Patient has a history of paranoid schizophrenia. Apparently he has been having increased auditory hallucinations and had endorsed to staff that he was having suicidal ideation. They had spoken to the CT who stated they needed medical clearance. Patient complains of some lower abdominal pain related to fall he had 3 days ago but otherwise has no medical complaints. Physical Examination: Afebrile vitals are unremarkable Alert oriented he does have a flat affect Patient does endorse auditory hallucinations Heart regular rhythm Lungs clear Abdomen soft Test Results: EKG shows sinus rhythm at a rate of 54. Chest x-ray shows no acute findings. CT the head shows chronic changes. Labs notable for creatinine 1.56. Urinalysis normal. Urine drug screen and serum alcohol normal. Emergency Department Course and Treatment: Patient is medically cleared. He will be evaluated for crisis for transfer to [facility]. Treatment Plan: [] Disposition: Transfer pending crisis evaluation Impression: Psychosis Suicidal ideation This note was generated with [employer] dictation software. It may contain incorrect words, spelling, and punctuation that were not noted in review of the chart prior to signing ED Disposition - Plan for ED Patient: Chief Complaint: General Illness Referrals: Joelle Charles MD [Primary Care Provider] -
[2018-06-06 21:00] VITALS: BP 188/74; PULSE 70; RESP 16; O2SAT 94
--- NOTE | 2018-06-06 23:08 | ED.RN ---
marleny with crisis spoke with [facility] licensed clinical social worker. At this time they do not feel he needs to be admitted that this current issue is a chronic mental health issue. Baltazar mendez says if [facility] is not able to manage his care they will need to contact [facility] social work department. Spoke with Sally at [facility] at this time to discuss this plan. Per winchester nuno they are not able to take the patient back and per rita SCHAFER they are not able to take patient back at this time. She will have to call and speak to her DON at this time. Sally has called back and they are not able to refuse patient at this time. Patient has been accepted back to [facility]. Discussed plan of care with nursing staff at [facility]. At this time they will seek alternative means of admission for patient .
--- NOTE | 2018-06-07 00:21 | ED.DEP ---
ED Disposition - Plan for ED Patient: Chief Complaint: General Illness Instructions: ED Paranoid Schizophrenia Referrals: Joelle Charles MD [Primary Care Provider] -
[2018-06-07 00:34] VITALS: BP 142/53; PULSE 77; RESP 22; O2SAT 91
[2018-06-07 00:43] VITALS: BP 142/53; PULSE 77; RESP 22; O2SAT 91
== END 2018-06-07 01:07 | disposition skilled nursing facility (03) ==
LOC: ED 17:13
PROVIDERS: Emergency Provider Emergency Medicine; Family Provider Family Medicine; PCP Family Medicine
DX: F20.0 Paranoid schizophrenia (principal); R45.851 Suicidal ideations; J44.9 Chronic obstructive pulmonary disease, unspecified; Z79.899 Other long term (current) drug therapy
CPT/HCPCS: 36415; 70450; 71045; 80048; 80307; 80320; 81001; 85025; 93005; 99284; G0480

== ENCOUNTER → 2018-06-13 13:11 | Outpatient (CLI) | payer MEDICARE, MEDICAID, SELFPAY ==
--- NOTE | 2018-06-14 06:55 | PFTCOMP ---
COMPLETE PULMONARY FUNCTION TEST INTERPRETATION Brief HPI: Patient is a 77 year old male, currently under the care of Louise Spicer, who presents to [facility] for complete pulmonary function tests secondary to diagnosis of COPD. Respiratory therapist reports good effort and reproducible results. Patient was significant difficulty in completing the testing. Interpretation: Forced expiration spirometry shows a severe large airways obstructive ventilatory defect with an FEV1 of 46% predicted. There is no significant bronchodilator response by strict ATS criteria. Spirograms are of good quality and plateau slowly, indicating slowly emptying areas of the lungs. The respiratory flow volume loop shows decreased expiratory flow rates at high lung volumes consistent with small airways obstruction. Lung volumes by body plethysmography show an elevated total lung capacity at 9.14 L, 149% predicted. FRC and RV are elevated out of proportion. Lung volume measurements are consistent with hyperinflation and air-trapping. Diffusion capacity by carbon monoxide is elevated at 156% predicted. The airway resistance is elevated. No previous pulmonary function tests were available for review. Impression: Irreversible severe large airways obstructive ventilatory defect. Interpretation with caution given patient's difficulty in testing. Clinical suspicion for possible asthma, but reliability of data is questionable.
--- NOTE | 2018-06-14 06:58 | PFTCOMP_ITS ---
COMPLETE PULMONARY FUNCTION TEST INTERPRETATION Brief HPI: Patient is a 77 year old male, currently under the care of Louise Spicer, who presents to [facility] for complete pulmonary function tests secondary to diagnosis of COPD. Respiratory therapist reports good effort and reproducible results. Patient was significant difficulty in completing the testing. Interpretation: Forced expiration spirometry shows a severe large airways obstructive ventilatory defect with an FEV1 of 46% predicted. There is no significant bronchodilator response by strict ATS criteria. Spirograms are of good quality and plateau slowly, indicating slowly emptying areas of the lungs. The r espiratory flow volume loop shows decreased expiratory flow rates at high lung volumes consistent with small airways obstruction. Lung volumes by body plethysmography show an elevated total lung capacity at 9.14 L, 149% predicted. FRC and RV are elevated out of proportion. Lung volume measurements are consistent with hyperinflation and air-trapping. Diffusion capacity by carbon monoxide is elevated at 156% predicted. The airway resistance is elevated. No previous pulmonary function tests were available for review. Impression: Irreversible severe large airways obstructive ventilatory defect. Interpretation with caution given patient's difficulty in testing. Clinical suspicion for possible asthma, but reliability of data is questionable.
== END ==
PROVIDERS: Family Provider Family Medicine; PCP Family Medicine; Referring Provider Nurse Practitioner Acute Care; Visit Provider Nurse Practitioner Acute Care
DX: J44.9 Chronic obstructive pulmonary disease, unspecified (principal)
CPT/HCPCS: 94060; 94726; 94729

== ENCOUNTER → 2018-06-18 13:36 | Outpatient (CLI) | payer MEDICARE, MEDICAID, SELFPAY ==
--- NOTE | 2018-06-18 13:54 | CT_ITS ---
STUDY: CT CHEST WITHOUT CONTRAST REASON FOR EXAM: Male, 77 years old. Pneumonia, COPD RADIATION DOSAGE (If Supplied By Facility): CTDIvol = ( 20.00 ) mGy, DLP = ( 940.01 ) mGycm TECHNIQUE: Transaxial imaging was performed without the administration of intravenous contrast material. Individualized dose optimization techniques were used for this CT. COMPARISON: Prior CTA chest of April 14, 2018 FINDINGS: There has been near complete interval resolution of previously noted right lower lobe infiltrate. There has been slight interval resolution of irregular margined density of the posterior left upper lobe. There are additional scattered small cavitary nodules measuring less than 1 cm in diameter of the right upper lobe which may be associated with pneumonic process. These are new in the interval. There are mild emphysematous changes of the lungs predominantly involving the upper lobes. There is no pleural effusion. There is mild cardiomegaly. There is no pericardial effusion. Coronary arterial calcifications are present. Normal mediastinum. Hilar areas are difficult to assess on this noncontrast study. There is no obvious hilar mass or adenopathy. There is dilatation of the main, left, and right pulmonary arteries. The main pulmonary artery measures up to 3.7 cm in diameter. There are calcified plaques of the aortic arch. There are multi-level degenerative changes of the thoracic spine. There are 2 left hepatic lobe cysts, the largest measuring 4.[address]/Chest without Contrast IMPRESSION: 1. There is been near complete interval resolution of previously noted right lower lobe infiltrate. 2. There has been slight interval resolution of irregular marginated nodular density of the posterior left upper lobe. 3. There are additional small scattered cavitary nodules measuring less than 1 cm in diameter of the right upper lobe which may be associated with pneumonic process. These are new in the interval. 4. Mild emphysematous changes of the lungs predominantly involving the upper lobes. 5. Mild cardiomegaly. Coronary arterial calcifications are present. 6. There is dilatation of the main, left, and right pulmonary arteries. The main pulmonary artery measures up to 3.7 cm in diameter. This may be associated with pulmonary hypertension. 7. There are 2 left hepatic lobe cysts, the largest measuring 4.1 cm. Electronically Signed: Martin Latham MD at 14:43 EST , Service support ,
== END ==
PROVIDERS: Family Provider Family Medicine; PCP Family Medicine; Referring Provider Nurse Practitioner Acute Care; Visit Provider Nurse Practitioner Acute Care
DX: J18.9 Pneumonia, unspecified organism (principal)
CPT/HCPCS: 71250